=== PATIENT | male | born 1950 | race Caucasian/White ===

== ENCOUNTER 2023-07-31 06:11 | Emergency (ER) | payer MEDICARE, OTHER, SELFPAY ==
[2023-07-31 06:13] VITALS: BP 162/80
--- NOTE | 2023-07-31 06:28 | ED.GENMED ---
History of Present Illness
General
Chief Complaint: Cardiac Symptoms
Source: patient and records
Exam Limitations: none
Time Seen by Provider: 07/31/23 06:16
Nursing documentation reviewed up to this point in time: agreed with
Travel History
Have you had any contact with someone who has COVID-19?: No
Do you have any symptoms of coronavirus? Fever > 100 degrees, chills, cough, shortness of breath, sore throat, loss of taste or smell, muscle aches, or headache?: No
History of Present Illness
History of Present Illness:
73-year-old male with a past medical history as documented including atrial fibrillation, pacemaker (Kranem, placed at [facility] 2 years ago for symptomatic bradycardia), PVD status post stenting of the left lower
extremity who presents to the emergency department for evaluation of lightheadedness�patient concerned for pacemaker malfunction. Patient states that he was watching football game last night and around 1 AM while he was resting he noticed he was
feeling mildly lightheaded. He says that this is his typical symptom for atrial fibrillation and in the past he was told by his cardiology that if he has symptoms he can take an extra one half dose of his metoprolol. He says that he took a 12.5 mg
dose of metoprolol but his lightheadedness did not improve. He says that he checked his heart rate using home monitor and it told him that his heart rate was in the 40s. He says his pacemaker is set for the 70s and so he was concerned that it was
not functioning correctly. He says that symptoms continued on for the next 3 hours or so and he ultimately decided to come to the emergency room to be assessed. He denies any chest pain. He denies any shortness of breath. He denies any abdominal
pain or flank pain. No headache or neck pain. Denies any other complaints. Compliant with all medications including Eliquis.
Past History
Past History
ED Past Medical History: CAD, Cancer (Bladder CA), GERD, HTN and Other (PVD, Diverticulitis, Vestibular vertigo)
ED Past Surgical History: Bowel resection (Sigmoid colon resection), Cardiac (Pacemaker), Cholecystectomy, Orthopedic (right ankle surgery, ), Urological ( Bladder removed, Urostomy, Prostatectomy) and Other (Stents left leg x 2)
Social History
Tobacco: Former smoker
Alcohol: Occasional
Personal:
Living: with family
Review of Systems
Review of Systems
All Other Systems: ROS reviewed and negative except as documented in HPI and ROS
Constitutional: Denies fever
Respiratory: Denies cough or trouble breathing
Cardiac: Denies chest pain or palpitations
ABD/GI: Denies abdominal pain, nausea or vomiting
: Denies flank pain
Musculoskeletal: Denies neck pain or back pain
Neurological: Reports dizzy; Denies headache, weakness or numbness
Phy Exam
Physical Exam
Physical Exam:
General: Awake, alert, oriented x3; no acute distress
Head: Normocephalic, atraumatic
Eyes: Conjunctiva normal
Throat: Airway intact, handling secretions
Neck: Trachea midline, supple without meningismus
Lungs: Clear to auscultation bilaterally, no wheezing, rales, rhonchi
Heart: Regular rate and rhythm, no murmurs, gallops, or rubs; pacemaker left upper chest
Abd: Soft, non distended, nontender; urostomy bag in place, multiple abdominal scars from prior surgery
Neuro: Cranial nerves grossly intact, speech fluid
Skin: Chronic venous stasis changes in his lower extremities bilateral
Extremities: Trace edema in the lower extremities bilaterally, distal extremities warm and well-perfused
Scores
Heart Failure Risk
Heart Failure Risk Score: Not Applicable
Heart Score for Chest Pain Patients
STEMI patient?: Not applicable
Withdrawal Assessment of Alcohol
Withdrawal Assessment Completed?: Not applicable
Course
Orders/Labs/Results
Orders:
Orders
07/31/23 06:17
Electrocardiogram (*1) Urgent
Reason for Study: Bradycardia / Tachycardia
EKG- Treatment ONCE
Interrogate Pacemaker- Treatment ONCE
CR Chest - 2 Views Urgent
Comment:
Reason For Exam: pacemaker, eval for lead fx
07/31/23 06:38
Complete Blood Count/With Diff Urgent
Comprehensive Metabolic Panel Urgent
07/31/23 07:44
CARDIOLOGY CONSULT Urgent
Consulting Provider: Derrick Bland
Was physician already notified: Yes
Abnormal Lab Results
07/31/23
06:38
MCV 79.4 L fL
(80.0-94.0)
Plt Count 129 L 10^3/uL
(130-400)
MPV 10.6 H fL
(7.4-10.4)
Carbon Dioxide 20 L mmol/L
(22-30)
Alkaline Phosphatase 131 H U/L
(38-126)
07/31/23 06:38
07/31/23 06:38
Vital Signs
Initial and Last Documented VS:
Initial Vital Signs
Temp Pulse Resp BP Pulse Ox
36.6 C 70 18 162/80 97
07/31/23 06:13 07/31/23 06:13 07/31/23 06:13 07/31/23 06:13 07/31/23 06:13
Last Documented Vital Signs
Temp Pulse Resp BP Pulse Ox
36.6 C 75 14 123/78 97
07/31/23 06:13 07/31/23 07:30 07/31/23 07:30 07/31/23 07:00 07/31/23 06:13
MDM/Problems Addressed
Differential Diagnosis Includes:
Differential diagnosis is wide includes but not limited to: Cardiac dysrhythmia, bradycardia (fractured lead, battery malfunction, pacemaker malfunction would be consideration); lightheadedness could also be from anemia, electrolyte
derangement/dehydration, hypoglycemia, hypotension
MDM/Problems Addressed:
73-year-old male presents for evaluation after episode of mild lightheadedness that he says was associated with bradycardia into the 40s on a home heart rate monitor. He has a pacemaker and is concerned it is malfunctioning. He feels bit better
here. He has no other symptoms. Vital signs here significant for mild hypertension to 162/80 but otherwise normal including a pulse in the 70s. His EKG on arrival shows an atrial paced rhythm. Will check chest x-ray to evaluate for any signs of
lead fracture although again pacemaker appears to be functioning correctly on EKG here. Will check labs including a CBC and a CMP. Will interrogate device. Monitor on telemetry reassess after the above.
Labs reviewed: CBC shows no anemia or other clinically significant abnormalities. CMP is within acceptable range. Chest x-ray reviewed by me shows no lead fractures/migration or other acute pathology. Device was interrogated and report reviewed
by me shows a few episodes of NSVT but pacemaker otherwise appears to be functioning normally with good battery life. Discussed with cardiology to review (patient follows with [facility]--Dr. Aguero).
Cardiology reviewed pacemaker report: Functioning appropriately, pacing 90% base rate at 70 bpm. He does have frequent PACs which could account for falls under counting of his heart rate. Has had a few episodes of atrial tachycardia. On clinical
reassessment patient's blood pressures normalizes vitals have remained otherwise stable. He has no dizziness here, up and ambulatory without any difficulties. No clear indication for admission at this point with symptoms improved and reassuring
workup here. I think he is stable for discharge and can follow-up with his primary doctor and cardiology as an outpatient. He feels comfortable with this plan. Spoke about return precautions and all questions answered.
Chronic conditions affecting care:
Atrial fibrillation status post pacemaker presented with concern for pacemaker issue
Acute Exacerbation and/or Progression of Chronic Illness:
Acutely hypertensive
Acute Exacerbation and/or Progression of Chronic Illness: HTN
*Radiology
Radiology exam reviewed: preliminary read by ED provider and radiology read reviewed
*Pulse Oximetry
Patient hypoxic: no
*EKG
Interpreted by ED Provider?: Yes
Comparison EKG: no changes
Heart Rate: 70
Rate: normal
Rhythm: other (Atrial paced)
Interval: first degree heart block
QRS Pattern: normal QRS
Ischemia: no ischemia
*Critical Care Note
Total Time (30-74mins, 75-104mins- exclusive of procedures): Not Applicable
Data Reviewed
Review of Other/Old Records Reveals: Labs and Records
Source: patient and records
ED Attending Note
-
Portions of this chart may have been created with voice recognition software.� Occasional wrong word or��sound alike� substitutions may have occurred due to the inherent limitations of voice recognition software.
Discharge Plan
Departure
Patient Disposition: Home (Routine Discharge)
Date of Disposition: 07/31/23
Time of Disposition: 08:51
Patient with high blood pressure during this ER visit?: Yes
Discharge Problem:
Dizziness
Instructions: Dizziness, Adult ED
Prescriptions:
No Action
Eliquis 5 MG tablet
5 mg PO BID
losartan 50 MG tablet
50 mg PO BID
atorvastatin 40 MG tablet
40 mg PO QPM
amlodipine 5 mg Tablet
10 mg PO QPM
potassium 99 mg Tablet
49.5 mg PO DAILY
lansoprazole 30 mg Capsule,Delayed Release(Dr/Ec)
30 mg PO DAILYPRN PRN (Reason: gerd)
metoprolol tartrate 25 mg Tablet
25 mg PO BID
aspirin 81 mg Tablet,Delayed Release (Dr/Ec)
81 mg PO DAILY
Referrals:
Diaz Rodriguez DO [Family Provider] - Follow up in 5-7 days
Activity Restrictions/Additional Instructions:
Thank you for visiting the Emergency Department at [facility].
1. Please schedule a follow up appointment as directed. Call first thing tomorrow morning to make an appointment.
2. If indicated, please take your medications as instructed and indicated on discharge paperwork.
3. If any of your symptoms do not improve, or persist, or become more severe within 6-12 hours, please return to the emergency department for further care.
4. Please return to the emergency department if you develop a headache, neck pain/stiffness, fever greater than 100.4F, chest pain, shortness of breath, persistent nausea, vomiting, slurred speech, difficulty walking, numbness/tingling, weakness,
signs of infection or any other symptoms that are worrisome to you.
Please call [phone] if you have any questions.
Interventions
Interventions:
*Risk Screen - Suicide Last Done: 07/31/23 06:13
*General Assessment Last Done: 07/31/23 06:39
*Neglect/Abuse Screening Last Done: 07/31/23 06:13
ED- Fall Risk Assessment Last Done: 07/31/23 06:39
*ED COVID-19 Vaccine History Last Done: 07/31/23 06:39
ED- Pulmonary Assessment Last Done: 07/31/23 06:39
ED- Cardiac Assessment Last Done: 07/31/23 06:39
[2023-07-31 06:38] VITALS: BP 154/78
[2023-07-31 06:43] VITALS: BMI 31.0
[2023-07-31 07:00] VITALS: BP 123/78
[2023-07-31 07:13] LABS: ALT (SGPT) 20 U/L (0-50); AST (SGOT) 29 U/L (17-59); Albumin 3.8 g/dl (3.5-5.0); Alkaline Phosphatase 131 U/L (38-126); Blood Urea Nitrogen 16 mg/dl (9-20); Calcium 9.2 mg/dl (8.4-10.2); Carbon Dioxide 20 mmol/L (22-30); Chloride 106 mmol/L (98-107); Estimated Creatinine Clearance 59 ml/min; Glucose 95 mg/dl (70-99); Potassium 3.8 mmol/L (3.5-5.1); Sodium 138 mmol/L (135-145); Total Protein 6.7 g/dl (6.3-8.2); eGFR 57.65
[2023-07-31 07:21] LABS: % Basophils 0.5 % (0-2); % Eosinophils 3.2 % (0-6); % Immature Granulocytes 0.5 % (0-0.5); % Lymphocytes 25.6 % (20.5-51.1); % Monocytes 9.2 % (1.7-9.3); Absolute Eosinophils 0.2 10^3/uL (0-0.7); Absolute Lymphocytes 1.6 10^3/uL (1.2-3.4); Absolute Monocytes 0.6 10^3/uL (0.1-0.6); Absolute Neutrophils 3.8 10^3/uL (1.4-6.5); Hematocrit 39.8 % (39.0-52.0); Hemoglobin 13.6 g/dL (13.0-18.0); Mean Corp Hgb Conc. 34.2 g/dL (33.0-37.0); Mean Corpuscular Hgb 27.1 pg (27.0-31.0); Mean Corpuscular Volume 79.4 fL (80.0-94.0); Mean Platelet Volume 10.6 fL (7.4-10.4); Nucleated Red Blood Cells % 0 % (-); Platelet Count 129 10^3/uL (130-400); Red Blood Cell Count 5.01 10^6/uL (4.70-6.10); Red Cell Dist. Width 14.3 % (11.5-14.5); White Blood Cell Count 6.2 10^3/uL (4.8-10.8)
[2023-07-31 08:00] VITALS: BP 125/72
[2023-07-31 09:00] VITALS: BP 133/79
--- NOTE | 2023-07-31 09:44 | EDRN ---
Reviewed discharge instructions with patient. Verbalized understanding.
[2023-07-31 09:45] VITALS: BP 142/78
== END 2023-07-31 09:45 | disposition home or self-care (01) ==
LOC: EMR 06:11
PROVIDERS: CONSULT PHYSICIAN Internal Medicine Cardiovascular Disease; EMERGENCY PHYSICIAN Emergency Medicine; FAMILY PHYSICIAN Family Medicine Sports Medicine
DX: R42 Dizziness and giddiness (principal); I44.0 Atrioventricular block, first degree; I48.91 Unspecified atrial fibrillation; K21.9 Gastro-esophageal reflux disease without esophagitis; I10 Essential (primary) hypertension; I25.10 Atherosclerotic heart disease of native coronary artery without angina pectoris; I73.9 Peripheral vascular disease, unspecified; Z79.01 Long term (current) use of anticoagulants; Z95.0 Presence of cardiac pacemaker; Z95.5 Presence of coronary angioplasty implant and graft; Z85.51 Personal history of malignant neoplasm of bladder; Z85.46 Personal history of malignant neoplasm of prostate; Z87.891 Personal history of nicotine dependence; Z90.49 Acquired absence of other specified parts of digestive tract; Z90.79 Acquired absence of other genital organ(s); Z98.0 Intestinal bypass and anastomosis status; Z88.8 Allergy status to other drugs, medicaments and biological substances; Z88.5 Allergy status to narcotic agent; Z91.013 Allergy to seafood
CPT/HCPCS: 99284; 71046; 80053; 85025; 93005

== ENCOUNTER 2023-10-15 19:14 | Emergency (ER) | payer MEDICARE, OTHER, SELFPAY ==
[2023-10-15 19:17] VITALS: BP 124/86
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
== END 2023-10-15 23:22 | disposition home or self-care (01) ==
LOC: EMR 19:14
PROVIDERS: EMERGENCY PHYSICIAN Emergency Medicine; FAMILY PHYSICIAN Family Medicine Sports Medicine
DX: S60.512A Abrasion of left hand, initial encounter (principal); S60.311A Abrasion of right thumb, initial encounter; S80.212A Abrasion, left knee, initial encounter; M25.512 Pain in left shoulder; V18.2XXA Unspecified pedal cyclist injured in noncollision transport accident in nontraffic accident, initial encounter; I25.10 Atherosclerotic heart disease of native coronary artery without angina pectoris; I10 Essential (primary) hypertension; I48.91 Unspecified atrial fibrillation; K21.9 Gastro-esophageal reflux disease without esophagitis; K57.92 Diverticulitis of intestine, part unspecified, without perforation or abscess without bleeding; Z79.01 Long term (current) use of anticoagulants; Z95.0 Presence of cardiac pacemaker; Z87.891 Personal history of nicotine dependence; Z85.51 Personal history of malignant neoplasm of bladder; Z98.0 Intestinal bypass and anastomosis status; Z90.79 Acquired absence of other genital organ(s); Z88.8 Allergy status to other drugs, medicaments and biological substances; Z88.5 Allergy status to narcotic agent; Z91.013 Allergy to seafood
CPT/HCPCS: 99284; 70450; 73030; 73120; 73564

== ENCOUNTER 2023-11-25 19:46 | Emergency (ER) | payer MEDICARE, OTHER, SELFPAY ==
[2023-11-25 19:50] VITALS: BP 112/71; BMI 28.0
--- NOTE | 2023-11-25 20:26 | ED.GENMED ---
History of Present Illness
<Urvashi Kelly [employer] MANAGEMENT OFFICER - Last Filed: 11/26/23 00:33>
General
Chief Complaint: Chest Pain
Source: patient
Exam Limitations: none
Time Seen by Provider: 11/25/23 20:26
Nursing documentation reviewed up to this point in time: agreed with
Travel History
Have you had any contact with someone who has COVID-19?: No
Do you have any symptoms of coronavirus? Fever > 100 degrees, chills, cough, shortness of breath, sore throat, loss of taste or smell, muscle aches, or headache?: No
History of Present Illness
History of Present Illness:
73 yo male w h/o Lung CA, Afib on Eliquis, HTN, Pacemaker, CAD, Cystectomy for bladder CA, Prostatectomy for CA, presents stating 'I'm in a fib.' States 6 p.m. while napping left upper chest pain awakened him suddenly, he took Prevacid with no
relief, at 6:15 chewed four 81 mg ASA and CP subsided after 10 minutes. Sat back down, felt heart palpitations, his pulse ox was reading HR 70-115. He states he is typically NSR. Denies SOB or feeling lightheaded.
Past History
<Urvashi Kelly [employer]NAG[employer] OFFICER - Last Filed: 11/26/23 00:33>
Past History
ED Past Medical History: CAD, Cancer (Bladder CA), GERD, HTN and Other (PVD, Diverticulitis, Vestibular vertigo)
ED Past Surgical History: Bowel resection (Sigmoid colon resection), Cardiac (Pacemaker), Cholecystectomy, Orthopedic (right ankle surgery, ), Urological ( Bladder removed, Urostomy, Prostatectomy) and Other (Stents left leg x 2)
Social History
Tobacco: Former smoker
Alcohol: Occasional
Personal:
Living: with family
Review of Systems
<Urvashi Kelly [employer]NAG[employer] OFFICER - Last Filed: 11/26/23 00:33>
Review of Systems
Allergies reviewed?: Yes
All Other Systems: ROS reviewed and negative except as documented in HPI and ROS
Constitutional: Denies fever or fatigue
Respiratory: Denies trouble breathing
Cardiac: Reports chest pain and palpitations; Denies diaphoresis
ABD/GI: Denies abdominal pain or nausea
: Reports no symptoms
Musculoskeletal: Reports no symptoms
Skin: Reports no symptoms
Neurological: Reports no symptoms
Phy Exam
<Urvashi Kelly [employer]NAG[employer] OFFICER - Last Filed: 11/26/23 00:33>
Physical Exam
Physical Exam:
GENERAL: No acute distress. A&Ox3.
CONSTITUTIONAL: Afebrile.
EYES: clear, conjunctivae normal
ENMT: moist mucus membranes, Pharynx nl
RESPIRATORY: Regular respirations, nonlabored, lungs clear.
CARDIOVASCULAR: Irregularly irregular rate and rhythm, no murmurs, no rubs.
GI: Soft, nontender.
: Urostomy bag intact, draining clear yellow uring
MUSCULOSKELETAL: Moves with ease. Well perfused. No edema.
SKIN: Warm, dry, pink, both feet dusky color, mildly cool
PSYCH: Normal mood and affect. Well kept, interactive and appropriate
NEUROLOGIC: Awake, alert and oriented. No focal neurological deficits
Scores
<Urvashi Kelly, COUNTY [employer] MANAGEMENT OFFICER - Last Filed: 11/26/23 00:33>
Heart Score for Chest Pain Patients
STEMI patient?: No
History: Slightly or Non-Suspicious
ECG: Normal
Age: >/= 65 years
Risk Factors: 1 or 2 Risk Factors
Troponin: </= Normal Limit
Heart Score for Chest Pain Patients: 3
Heart Score Risk: 2.5% MACE over next 6 weeks
Course
<Urvashi Kelly, COUNTY [employer] MANAGEMENT OFFICER - Last Filed: 11/26/23 00:33>
Orders/Labs/Results
Orders:
Orders
11/25/23 19:47
Electrocardiogram (*1) Urgent
Reason for Study: Chest Pain
11/25/23 19:48
EKG- Treatment ONCE
11/25/23 20:51
Complete Blood Count/With Diff Urgent
Comprehensive Metabolic Panel Urgent
Troponin I Urgent
11/25/23 23:48
Troponin I Urgent
Abnormal Lab Results
11/25/23
20:51
Hct 38.1 L %
(39.0-52.0)
MCV 76.8 L fL
(80.0-94.0)
Monocytes % 10.2 H %
(1.7-9.3)
BUN 21 H mg/dl
(9-20)
Glucose 102 H mg/dl
(70-99)
Alkaline Phosphatase 127 H U/L
(38-126)
11/25/23 20:51
11/25/23 20:51
Vital Signs
Initial and Last Documented VS:
Initial Vital Signs
Temp Pulse Resp BP Pulse Ox
98.4 F 78 20 112/71 99
11/25/23 19:50 11/25/23 19:50 11/25/23 19:50 11/25/23 19:50 11/25/23 19:50
Last Documented Vital Signs
Temp Pulse Resp BP Pulse Ox
98.4 F 78 20 125/69 95
11/25/23 19:50 11/26/23 00:00 11/26/23 00:00 11/26/23 00:00 11/26/23 00:00
<Wing Mccord MD - Last Filed: 11/25/23 23:40>
Orders/Labs/Results
Orders:
Orders
11/25/23 19:47
Electrocardiogram (*1) Urgent
Reason for Study: Chest Pain
11/25/23 19:48
EKG- Treatment ONCE
11/25/23 20:51
Complete Blood Count/With Diff Urgent
Comprehensive Metabolic Panel Urgent
Troponin I Urgent
11/25/23 23:48
Troponin I Urgent
Abnormal Lab Results
11/25/23
20:51
Hct 38.1 L %
(39.0-52.0)
MCV 76.8 L fL
(80.0-94.0)
Monocytes % 10.2 H %
(1.7-9.3)
BUN 21 H mg/dl
(9-20)
Glucose 102 H mg/dl
(70-99)
Alkaline Phosphatase 127 H U/L
(38-126)
11/25/23 20:51
11/25/23 20:51
Vital Signs
Initial and Last Documented VS:
Initial Vital Signs
Temp Pulse Resp BP Pulse Ox
98.4 F 78 20 112/71 99
11/25/23 19:50 11/25/23 19:50 11/25/23 19:50 11/25/23 19:50 11/25/23 19:50
Last Documented Vital Signs
Temp Pulse Resp BP Pulse Ox
98.4 F 78 20 125/69 95
11/25/23 19:50 11/26/23 00:00 11/26/23 00:00 11/26/23 00:00 11/26/23 00:00
<Urvashi Kelly, COUNTY [employer] MANAGEMENT OFFICER - Last Filed: 11/26/23 00:33>
MDM/Problems Addressed
Differential Diagnosis Includes:
Afib, Afib w RVR, AK
MDM/Problems Addressed:
73 yo male w h/o Lung CA, Afib on Eliquis, HTN, Pacemaker, CAD, Cystectomy for bladder CA, Prostatectomy for CA, presents stating 'I'm in a fib.' States 6 p.m. while napping left upper chest pain awakened him suddenly, he took Prevacid with no
relief, at 6:15 chewed four 81 mg ASA and CP subsided after 10 minutes. Sat back down, felt heart palpitations, his pulse ox was reading HR 70-115. He states he is typically NSR. Denies SOB or feeling lightheaded.
9:27 p.m.
CBC w no clinically significant abnormality
CMP:Normal
Troponin: WNL
No further chest pains
11:[address] Mccord in to evaluate
Pacemaker interrogation report reviewed, no recent significant events
Troponin #2 Normal
Pt stable for discharge
Referred to cardiology hotline.
Chronic conditions affecting care: CAD, Arrhythmia and PVD
<Urvashi Kelly [employer]NAG[employer] OFFICER - Last Filed: 11/26/23 00:33>
*Critical Care Note
Total Time (30-74mins, 75-104mins- exclusive of procedures): Not Applicable
ED Attending Note
<Urvashi Kelly NP - Last Filed: 11/26/23 00:33>
-
Portions of this chart may have been created with voice recognition software.� Occasional wrong word or��sound alike� substitutions may have occurred due to the inherent limitations of voice recognition software.
<Wing Mccord MD - Last Filed: 11/25/23 23:40>
ED Attending Note
Patient seen and examined by attending physician: Yes
ED Attending Note:
I have seen and evaluated the patient with a [id number] encounter. I have spoken to the advance practicer provider and involved in the medical history, the physical exam, medical decision making.
Evaluation and management service: agree unless noted differently below.
Results interpretation: agree unless noted differently below.
Focused HPI: 73-year-old male with a past medical history of lung cancer, hypertension, CAD, atrial fibrillation, pacemaker who presents to the emergency room for evaluation after an episode of chest pain. Patient reports that he was in his normal
state of health this afternoon was at a yard sale in the morning. He returned home around 3 PM and he says he had some lunch. He says he took a nap after lunch and woke up around 6 PM with chest pain. He describes a substernal pressure. He says
that he will occasionally get the symptoms with his GERD which improved with Prevacid�he took his normal dose of Prevacid but symptoms did not seem be improving. He says he took 324 mg of aspirin and about 15 to 20 minutes later his symptoms
resolved. He says that afterwards he was sitting on couch watching TV and he noticed he was having some palpitations consistent with his prior episodes of A-fib. He decided that given the chest pain and now his concern for A-fib he should be
evaluated in the emergency room. He is currently chest pain-free and his palpitations seem to have improved by my assessment. He denies any shortness of breath. He denies any dizziness or loss of consciousness. He denies any other complaints.
He sees Dr. Aguero for cardiology.
Physical exam: Awake alert not in distress. Vital signs are normal. He has no cardiac rubs gallops or murmurs. Lungs clear to auscultation bilaterally. No edema in his extremities. Distal extremities warm perfused.
Medical Decision Makin-year-old male presents for evaluation after an episode of chest pain also had some palpitations consistent with prior episodes of A-fib. Symptoms seem to have improved here. Vital signs are normal. EKG shows A-fib with
occasional ventricular paced beats. Heart rate in 70s or 80s. Plan to place an IV check labs including CBC and CMP, serial troponins. Will monitor patient on telemetry. Interrogate pacemaker ([employer]). Reassess after the above.
CBC and CMP unremarkable. Initial troponin negative with repeat pending. Device interrogation showed episodes of atrial fibrillation but no other concerning events. Functioning appropriately. I do suspect that his chest pain may have been
related to GERD as it happened after eating lunch and then taking a nap. Nevertheless he does have some coronary artery disease�will need cardiology follow-up regardless; if repeat troponin negative and remains asymptomatic can likely be referred
to ER chest pain hotline.
Discharge Plan
Departure
Patient Disposition: Home (Routine Discharge)
Date of Disposition: 11/26/23
Time of Disposition: 00:18
Patient with high blood pressure during this ER visit?: No
Condition: Good
Discharge Problem:
Atrial fibrillation, Chest pain in adult
Instructions: Atrial fibrillation, Chest Pain DCA Follow Up
Prescriptions:
No Action
Eliquis 5 MG tablet
5 mg PO BID
losartan 50 MG tablet
50 mg PO DAILY
atorvastatin 40 MG tablet
40 mg PO QPM
amlodipine 5 mg Tablet
5 mg PO DAILY@1999
potassium 99 mg Tablet
49.5 mg PO DAILY
lansoprazole 30 mg Capsule,Delayed Release(Dr/Ec)
30 mg PO BIDPRN PRN (Reason: gerd)
metoprolol tartrate 25 mg Tablet
25 mg PO DAILY
aspirin 81 mg Tablet,Delayed Release (Dr/Ec)
81 mg PO DAILY
losartan 50 mg Tablet
25 mg PO QPM
docusate sodium [Stool Softener] 100 mg Capsule
100 mg PO DAILY
docusate sodium [Stool Softener] 100 mg Capsule
100 mg PO BID PRN (Reason: constipation)
Patient Comments:
11/25/2023, lunchtime and dinnertime as needed.
metoprolol tartrate 25 mg Tablet
12.5 mg PO DAILY@1999
Referrals:
Ming Aguero MD [Active] - Call in 1-3 days for appt
Activity Restrictions/Additional Instructions:
As we discussed, your workup here today shows nothing worrisome
Someone from the cardiology office will call you Monday to make appointment for a more thorough cardiac evaluation.
If you don't hear from them by Monday 10 a.m., call the office, tell them you were here and need appointment
Continue your current medicatations.
Interventions
Interventions:
*Risk Screen - Suicide Last Done: 11/25/23 19:50
*General Assessment Last Done: 11/25/23 20:30
*Neglect/Abuse Screening Last Done: 11/25/23 19:50
ED- Fall Risk Assessment Last Done: 11/25/23 19:50
*ED COVID-19 Vaccine History Last Done: 11/25/23 20:30
ED- Cardiac Assessment Last Done: 11/25/23 22:28
Discharge Date and Time
Print Language: THAI
[2023-11-25 21:01] LABS: % Basophils 0.7 % (0-2); % Eosinophils 3.9 % (0-6); % Immature Granulocytes 0.3 % (0-0.5); % Lymphocytes 32.7 % (20.5-51.1); % Monocytes 10.2 % (1.7-9.3); % Neutrophils 52.2 % (42.2-75.2); Absolute Eosinophils 0.2 10^3/uL (0-0.7); Absolute Monocytes 0.6 10^3/uL (0.1-0.6); Absolute Neutrophils 3.2 10^3/uL (1.4-6.5); Hematocrit 38.1 % (39.0-52.0); Hemoglobin 13.4 g/dL (13.0-18.0); Mean Corp Hgb Conc. 35.2 g/dL (33.0-37.0); Mean Corpuscular Volume 76.8 fL (80.0-94.0); Mean Platelet Volume 10.4 fL (7.4-10.4); Nucleated Red Blood Cells % 0 % (-); Platelet Count 145 10^3/uL (130-400); Red Blood Cell Count 4.96 10^6/uL (4.70-6.10); Red Cell Dist. Width 14.5 % (11.5-14.5); White Blood Cell Count 6.2 10^3/uL (4.8-10.8)
[2023-11-25 21:14] LABS: ALT (SGPT) 18 U/L (0-50); AST (SGOT) 26 U/L (17-59); Albumin 3.9 g/dl (3.5-5.0); Alkaline Phosphatase 127 U/L (38-126); Blood Urea Nitrogen 21 mg/dl (9-20); Calcium 9.2 mg/dl (8.4-10.2); Carbon Dioxide 26 mmol/L (22-30); Chloride 103 mmol/L (98-107); Estimated Creatinine Clearance 51 ml/min; Glucose 102 mg/dl (70-99); Potassium 3.8 mmol/L (3.5-5.1); Sodium 137 mmol/L (135-145); Total Bilirubin 0.7 mg/dl (0.2-1.3); eGFR 57.65
[2023-11-25 21:25] LABS: Troponin I 0.015 ng/ml
[2023-11-25 21:30] VITALS: BP 109/63
--- NOTE | 2023-11-25 21:58 | PHANOTE ---
11/25/2023, [employer] rec tech, spoke to pt. to obtain their med. history; per pt., he is taking Eliquis 5 mg BID; however, this med. is not in pt.'s pharmacy fill data and the [facility] application is currently unavailable so I could not confirm this med.
[2023-11-25 22:14] VITALS: BP 112/69
--- NOTE | 2023-11-25 22:26 | EDRN ---
[employer] pacemaker interrogated
[2023-11-25 23:00] VITALS: BP 119/85
[2023-11-26] VITALS: BP 125/69
[2023-11-26 00:17] LABS: Troponin I 0.015 ng/ml
== END 2023-11-26 01:03 | disposition home or self-care (01) ==
LOC: EMR 19:46
PROVIDERS: Registered Nurse; EMERGENCY PHYSICIAN Emergency Medicine; FAMILY PHYSICIAN Family Medicine Sports Medicine
DX: I48.91 Unspecified atrial fibrillation (principal); R07.89 Other chest pain; I10 Essential (primary) hypertension; I25.10 Atherosclerotic heart disease of native coronary artery without angina pectoris; K21.9 Gastro-esophageal reflux disease without esophagitis; I73.9 Peripheral vascular disease, unspecified; K57.92 Diverticulitis of intestine, part unspecified, without perforation or abscess without bleeding; Z95.0 Presence of cardiac pacemaker; Z79.01 Long term (current) use of anticoagulants; Z85.51 Personal history of malignant neoplasm of bladder; Z85.118 Personal history of other malignant neoplasm of bronchus and lung; Z85.46 Personal history of malignant neoplasm of prostate; Z87.891 Personal history of nicotine dependence; Z98.0 Intestinal bypass and anastomosis status; Z90.79 Acquired absence of other genital organ(s); Z90.49 Acquired absence of other specified parts of digestive tract; Z90.6 Acquired absence of other parts of urinary tract; Z88.5 Allergy status to narcotic agent; Z91.013 Allergy to seafood; Z88.8 Allergy status to other drugs, medicaments and biological substances; Z91.048 Other nonmedicinal substance allergy status
CPT/HCPCS: 99284; 93288; 80053; 84484; 85025; 93005

== ENCOUNTER 2024-03-12 13:21 | Emergency (ER) | payer MEDICARE, OTHER, SELFPAY ==
[2024-03-12] VITALS (8 sets, daily range): BP systolic 96–111; BP diastolic 56–61; PULSE 70
[2024-03-12 13:53] LABS: ALT (SGPT) 16 U/L (0-50); AST (SGOT) 27 U/L (17-59); Alkaline Phosphatase 124 U/L (38-126); Blood Urea Nitrogen 17 mg/dl (9-20); Calcium 9.1 mg/dl (8.4-10.2); Carbon Dioxide 26 mmol/L (22-30); Chloride 103 mmol/L (98-107); Glucose 119 mg/dl (70-99); Potassium 4.1 mmol/L (3.5-5.1); Sodium 140 mmol/L (135-145); Total Bilirubin 0.7 mg/dl (0.2-1.3); Total Protein 6.7 g/dl (6.3-8.2); eGFR 57.29
[2024-03-12 14:07] LABS: % Basophils 0.5 % (0-2); % Eosinophils 3.4 % (0-6); % Immature Granulocytes 0.3 % (0-0.5); % Lymphocytes 12.2 % (20.5-51.1); % Monocytes 10.5 % (1.7-9.3); % Neutrophils 73.1 % (42.2-75.2); Absolute Eosinophils 0.2 10^3/uL (0-0.7); Absolute Lymphocytes 0.8 10^3/uL (1.2-3.4); Absolute Monocytes 0.7 10^3/uL (0.1-0.6); Absolute Neutrophils 4.8 10^3/uL (1.4-6.5); Hematocrit 40.4 % (39.0-52.0); Mean Corp Hgb Conc. 34.7 g/dL (33.0-37.0); Mean Corpuscular Hgb 28.1 pg (27.0-31.0); Mean Platelet Volume 10.7 fL (7.4-10.4); Nucleated Red Blood Cells % 0 % (-); Platelet Count 117 10^3/uL (130-400); Red Blood Cell Count 4.99 10^6/uL (4.70-6.10); Red Cell Dist. Width 14.6 % (11.5-14.5); White Blood Cell Count 6.5 10^3/uL (4.8-10.8)
[2024-03-12] MEDS: NSS 500 IV (15:17)
--- NOTE | 2024-03-12 15:25 | ED.GENMED ---
History of Present Illness
General
Chief Complaint: Heart Rate Problem
Source: patient
Exam Limitations: none
Time Seen by Provider: 03/12/24 14:26
Nursing documentation reviewed up to this point in time: agreed with
History of Present Illness
History of Present Illness:
74 y/o M afib on eliquis, pacer, lung cancer receiving radiation yazidi, cad, chronic diarrhea, sigmoidectomy, urostomy
here with lightheadedness, palpitations after eating lunch
says that he suddenly felt dizzy and knows that means he is either in a fib or dehdyrated
he checked his bp which was 100/60s and then HR 90s-140s bouncing around
he had missed his metoprolol 12.5 mg this am, so he took 1, then a 2nd one, then a 3rd one
then drove himself in
now he feels better
bp 90s/50s
pt says he is on a lot of stool softener/laxatives becuase of his chroinc constipation and has lots of loose stool chronically so he has several episodes daily of looose stools
this is chronic
no abdomnal pain
Past History
Past History
ED Past Medical History: CAD, Cancer (Bladder CA), GERD, HTN and Other (PVD, Diverticulitis, Vestibular vertigo)
ED Past Surgical History: Bowel resection (Sigmoid colon resection), Cardiac (Pacemaker), Cholecystectomy, Orthopedic (right ankle surgery, ), Urological ( Bladder removed, Urostomy, Prostatectomy) and Other (Stents left leg x 2)
Social History
Tobacco: Former smoker
Alcohol: Occasional
Personal:
Living: with family
Review of Systems
Review of Systems
Allergies reviewed?: Yes
All Other Systems: Not applicable
Phy Exam
Physical Exam
Physical Exam:
GENERAL: Alert , in no apparent distress, very well-appearing
EYE: pupils equal and reactive
NECK: Supple
ENT: o/p clr, mmm.
CARDIAC: Regular rate and rhythm . No edema
LUNGS: Clear breath sounds bilaterally, no acute respiratory distress, no wheezes/rales/rhonchi
ABDOMEN: Soft, without focal tenderness, no r/g, no cvat, normal bowel sounds urostomy right side, nontender abdomen
NEUROLOGICAL: Alert and oriented, no focal neuro deficits
SKIN: Warm and dry, skin intact. Peripheral vascular skin changes in the bilateral lower extremities, normal pulse, perfused warm
MUSCULOSKELETAL: No edema, well perfused. neg lauryn's sign
PSYCH: Normal and appropriate interaction.
Course
Orders/Labs/Results
Orders:
Orders
03/12/24 13:25
EKG [Electrocardiogram (*1)] Urgent
Reason for Study: Atrial Fibrillation
EKG- Treatment ONCE
03/12/24 13:34
Complete Blood Count/With Diff Urgent
Comprehensive Metabolic Panel Urgent
03/12/24 15:08
Orthostatic VS- Treatment ONCE
0.9% Sodium Chloride 500 ml [Nss] 500 ml IV BOLUS
CR Chest - 2 Views Urgent
Comment:
Reason For Exam: hypotensive
03/12/24 15:17
NT-proBNP Urgent
Abnormal Lab Results
03/12/24
13:34
RDW 14.6 H %
(11.5-14.5)
Plt Count 117 L 10^3/uL
(130-400)
MPV 10.7 H fL
(7.4-10.4)
Absolute Lymphs (auto) 0.8 L 10^3/uL
(1.2-3.4)
Absolute Monos (auto) 0.7 H 10^3/uL
(0.1-0.6)
Lymphocytes % 12.2 L %
(20.5-51.1)
Monocytes % 10.5 H %
(1.7-9.3)
Glucose 119 H mg/dl
(70-99)
03/12/24 13:34
03/12/24 13:34
Vital Signs
Initial and Last Documented VS:
Initial Vital Signs
Temp Pulse Resp BP Pulse Ox
98.2 F 84 17 96/61 98
03/12/24 13:30 03/12/24 13:30 03/12/24 13:30 03/12/24 13:30 03/12/24 13:30
Last Documented Vital Signs
Temp Pulse Resp BP Pulse Ox
98.2 F 70 18 111/59 99
03/12/24 13:30 03/12/24 17:00 03/12/24 17:00 03/12/24 17:00 03/12/24 17:00
MDM/Problems Addressed
Differential Diagnosis Includes:
hypotension, afib, overmedicated, dehydration
MDM/Problems Addressed:
74 y/o M
PAF on eliquis
says he felt himself go into afib (felt lightheaded and checked his HR which was irregular and fast)
he had missed his am metoprolol so he took it, plus 2 additional tabs within a short time and drove himself here
felt a little lightheaded and bp was soft on arrival but otherwise felt well
ekg NSR, no afib, no tachyarrhythmias
he was given small fluid bolus
bp improved
pt ambulatory without symptoms
d/w ed attending
agree that pt likely overmedicated with BB
no signs of CHF
cxr indep reviewed, no failure
d/c home
f/u cards
*Critical Care Note
Total Time (30-74mins, 75-104mins- exclusive of procedures): Not Applicable
ED Attending Note
-
Portions of this chart may have been created with voice recognition software.� Occasional wrong word or��sound alike� substitutions may have occurred due to the inherent limitations of voice recognition software.
Discharge Plan
Departure
Patient Disposition: Home (Routine Discharge)
Date of Disposition: 03/12/24
Time of Disposition: 17:24
Patient with high blood pressure during this ER visit?: No
Condition: Fair
Covid-19: Not Applicable
Discharge Problem:
Hypotension due to medication
Instructions: Atrial Fibrillation (DC), Palpitations (DC)
Prescriptions:
No Action
Eliquis 5 MG tablet
5 mg PO BID
losartan 50 MG tablet
50 mg PO DAILY
atorvastatin 40 MG tablet
40 mg PO QPM
amlodipine 5 mg Tablet
5 mg PO DAILY@1999
potassium 99 mg Tablet
49.5 mg PO DAILY
lansoprazole 30 mg Capsule,Delayed Release(Dr/Ec)
30 mg PO BIDPRN PRN (Reason: gerd)
metoprolol tartrate 25 mg Tablet
25 mg PO DAILY
aspirin 81 mg Tablet,Delayed Release (Dr/Ec)
81 mg PO DAILY
losartan 50 mg Tablet
25 mg PO QPM
docusate sodium [Stool Softener] 100 mg Capsule
100 mg PO DAILY
docusate sodium [Stool Softener] 100 mg Capsule
100 mg PO BID PRN (Reason: constipation)
Patient Comments:
11/25/2023, lunchtime and dinnertime as needed.
metoprolol tartrate 25 mg Tablet
12.5 mg PO DAILY@1999
Referrals:
Diaz Rodriguez DO [Family Provider] - Follow up in 2-3 days
Activity Restrictions/Additional Instructions:
Your blood pressure report was probably low because you took an extra 2 doses of your metoprolol for your atrial fibrillation that was presumed to be the cause of your lightheadedness today. You also have a lot of diarrhea and can be losing your
fluids that way. Probably back off of the laxative 1 dose so that you do not have this much diarrhea. Also he should probably hold your metoprolol tonight
You were no longer in A-fib and you are in sinus rhythm currently
Return for any concerns
Otherwise follow-up with your fish cake maker
Interventions
Interventions:
*Risk Screen - Suicide Last Done: 03/12/24 14:21
*General Assessment Last Done: 03/12/24 14:21
*Neglect/Abuse Screening Last Done: 03/12/24 14:21
ED- Fall Risk Assessment Last Done: 03/12/24 18:05
*Nursing Disposition Last Done: 03/12/24 18:05
ED- Cardiac Assessment Last Done: 03/12/24 14:21
ED- Pulmonary Assessment Last Done: 03/12/24 14:21
Discharge Date and Time
Discharge Date/Time: 03/12/24 18:05
Print Language: [place]
[2024-03-12 15:50] LABS: NT-proBNP 809 pg/ml
== END 2024-03-12 18:05 | disposition home or self-care (01) ==
LOC: EMR 13:21
PROVIDERS: Emergency Medicine; Physician Assistant; EMERGENCY PHYSICIAN Emergency Medicine; FAMILY PHYSICIAN Family Medicine Sports Medicine
DX: I95.2 Hypotension due to drugs (principal); I48.91 Unspecified atrial fibrillation; I25.10 Atherosclerotic heart disease of native coronary artery without angina pectoris; C34.90 Malignant neoplasm of unspecified part of unspecified bronchus or lung; Z92.3 Personal history of irradiation
CPT/HCPCS: 99283; 96360; 71046; 80053; 83880; 85025; 93005

== ENCOUNTER → 2024-04-01 09:59 | Outpatient (REF) | payer MEDICARE, OTHER, SELFPAY | LOC: RAD 09:59 | PROVIDERS: ATTENDING PHYSICIAN Surgery Vascular Surgery; FAMILY PHYSICIAN Family Medicine Sports Medicine; REFERRING PHYSICIAN Surgery Vascular Surgery | DX: I73.9 Peripheral vascular disease, unspecified (principal) | CPT/HCPCS: 93922; 93925 ==

== ENCOUNTER 2024-05-04 15:17 | Emergency (ER) | payer MEDICARE, OTHER, SELFPAY ==
[2024-05-04 15:31] VITALS: BP 116/55
[2024-05-04 16:04] LABS: % Basophils 0.2 % (0-2); % Eosinophils 0.4 % (0-6); % Immature Granulocytes 0.3 % (0-0.5); % Monocytes 8.5 % (1.7-9.3); % Neutrophils 81.6 % (42.2-75.2); Absolute Lymphocytes 0.8 10^3/uL (1.2-3.4); Absolute Monocytes 0.8 10^3/uL (0.1-0.6); Absolute Neutrophils 7.4 10^3/uL (1.4-6.5); Hematocrit 41.8 % (39.0-52.0); Hemoglobin 14.4 g/dL (13.0-18.0); Mean Corp Hgb Conc. 34.4 g/dL (33.0-37.0); Mean Corpuscular Hgb 27.6 pg (27.0-31.0); Mean Corpuscular Volume 80.1 fL (80.0-94.0); Mean Platelet Volume 10.1 fL (7.4-10.4); Nucleated Red Blood Cells % 0 % (-); Platelet Count 173 10^3/uL (130-400); Red Blood Cell Count 5.22 10^6/uL (4.70-6.10); Red Cell Dist. Width 13.6 % (11.5-14.5); White Blood Cell Count 9.1 10^3/uL (4.8-10.8)
[2024-05-04 16:11] LABS: ALT (SGPT) 19 U/L (0-50); AST (SGOT) 24 U/L (17-59); Albumin 4.1 g/dl (3.5-5.0); Alkaline Phosphatase 151 U/L (38-126); Blood Urea Nitrogen 33 mg/dl (9-20); Calcium 9.3 mg/dl (8.4-10.2); Carbon Dioxide 25 mmol/L (22-30); Chloride 105 mmol/L (98-107); Glucose 124 mg/dl (70-99); Potassium 4.4 mmol/L (3.5-5.1); Sodium 143 mmol/L (135-145); Total Bilirubin 0.4 mg/dl (0.2-1.3); Total Protein 7.2 g/dl (6.3-8.2); eGFR 52.41
[2024-05-04 18:14] VITALS: BP 106/68
[2024-05-04] MEDS: NSS 500 IV (18:14)
[2024-05-04 19:00] VITALS: BP 118/67
--- NOTE | 2024-05-04 19:31 | ED.GENMED ---
History of Present Illness
General
Chief Complaint: Heart Rate Problem
Source: patient
Exam Limitations: none
Time Seen by Provider: 05/04/24 17:50
Nursing documentation reviewed up to this point in time: agreed with
History of Present Illness
History of Present Illness:
Patient with history of paroxysmal atrial fibrillation on Eliquis and metoprolol, presents to ED secondary to sudden onset of dizziness, along with palpitations, while he was at home this afternoon. Patient checked his pulse and it was greater than
180 bpm. His monitor at home also told him that he was back in atrial fibrillation rhythm. As it had happened in the past, and previous recommendation given by his primary housing director, patient proceeded to take extra tablet of metoprolol, prior
to arrival. Upon arrival, patient is found to be in sinus rhythm, with resolution of dizziness. Denies associated chest pain. Denies nausea or vomiting. Denies recent change in diet. Patient admittedly however, does not take enough liquids. In
addition, patient was seen in urgent care center secondary to development of number of nodes along his fingers. Patient was started empirically on amoxicillin yesterday, with concern for cellulitis versus rheumatoid arthritis.
Past History
Past History
ED Past Medical History: CAD, Cancer (Bladder CA), GERD, HTN and Other (PVD, Diverticulitis, Vestibular vertigo)
ED Past Surgical History: Bowel resection (Sigmoid colon resection), Cardiac (Pacemaker), Cholecystectomy, Orthopedic (right ankle surgery, ), Urological ( Bladder removed, Urostomy, Prostatectomy) and Other (Stents left leg x 2)
Social History
Tobacco: Former smoker
Alcohol: Occasional
Personal:
Living: with family
Review of Systems
Review of Systems
Allergies reviewed?: Yes
All Other Systems: ROS reviewed and negative except as documented in HPI and ROS
Constitutional: Reports no symptoms
EENT: Reports no symptoms
Respiratory: Reports no symptoms
Cardiac: Reports palpitations
ABD/GI: Reports no symptoms
Musculoskeletal: Reports no symptoms
Skin: Reports no symptoms
Neurological: Reports dizzy
Phy Exam
Physical Exam
Physical Exam:
Physical Exam
General: no apparent distress, not acutely ill. afebrile
Head: nc/at. eomi
Neck: supple. no meningeal signs.
Heart: s1/s2 regular rate and rhythm, no murmur. equal radial pulses.
Lungs: no acute respiratory distress. clear bilaterally
Abdomen: normal bowel sounds. not tender.
Neuro: alert and oriented. no focal neurological deficits
Skin: no rash
Psychiatric: well kept. interactive and cooperative
Extremities: no edema. no calf tenderness.
Course
Orders/Labs/Results
Orders:
Orders
05/04/24 15:24
EKG [Electrocardiogram (*1)] Urgent
Reason for Study: Palpitations
EKG- Treatment ONCE
05/04/24 15:45
Complete Blood Count/With Diff Urgent
Comprehensive Metabolic Panel Urgent
Troponin I Urgent
05/04/24 18:08
0.9% Sodium Chloride 500 ml [Nss] 500 ml IV BOLUS
Abnormal Lab Results
05/04/24
15:45
Absolute Neuts (auto) 7.4 H 10^3/uL
(1.4-6.5)
Absolute Lymphs (auto) 0.8 L 10^3/uL
(1.2-3.4)
Absolute Monos (auto) 0.8 H 10^3/uL
(0.1-0.6)
Neutrophils % 81.6 H %
(42.2-75.2)
Lymphocytes % 9.0 L %
(20.5-51.1)
BUN 33 H mg/dl
(9-20)
Creatinine 1.4 H mg/dL
(0.7-1.3)
Glucose 124 H mg/dl
(70-99)
Alkaline Phosphatase 151 H U/L
(38-126)
05/04/24 15:45
05/04/24 15:45
Vital Signs
Initial and Last Documented VS:
Initial Vital Signs
Temp Pulse Resp BP Pulse Ox
97.8 F 69 20 116/55 100
05/04/24 15:31 05/04/24 15:31 05/04/24 15:31 05/04/24 15:31 05/04/24 15:31
Last Documented Vital Signs
Temp Pulse Resp BP Pulse Ox
97.8 F 70 15 118/67 98
05/04/24 15:31 05/04/24 19:30 05/04/24 19:30 05/04/24 19:00 05/04/24 19:30
MDM/Problems Addressed
MDM/Problems Addressed:
Patient remains in sinus rhythm during prolonged course of observation ED. As such, patient will be discharged home, with recommendation to continue his home medication, including metoprolol and Eliquis. Advised cardiology follow-up as an
outpatient, along with recommendation to discontinue amoxicillin, along with increased fluid intake.
*Critical Care Note
Total Time (30-74mins, 75-104mins- exclusive of procedures): Not Applicable
ED Attending Note
-
Portions of this chart may have been created with voice recognition software.� Occasional wrong word or��sound alike� substitutions may have occurred due to the inherent limitations of voice recognition software.
Discharge Plan
Departure
Patient Disposition: Home (Routine Discharge)
Date of Disposition: 05/04/24
Time of Disposition: 19:37
Patient with high blood pressure during this ER visit?: Yes
Condition: Good
Discharge Problem:
Atrial fibrillation
Instructions: Atrial Fibrillation (DC)
Prescriptions:
No Action
Eliquis 5 MG tablet
5 mg PO BID
losartan 50 MG tablet
50 mg PO DAILY
atorvastatin 40 MG tablet
40 mg PO QPM
amlodipine 5 mg Tablet
5 mg PO DAILY@1999
potassium 99 mg Tablet
49.5 mg PO DAILY
lansoprazole 30 mg Capsule,Delayed Release(Dr/Ec)
30 mg PO BIDPRN PRN (Reason: gerd)
metoprolol tartrate 25 mg Tablet
25 mg PO DAILY
aspirin 81 mg Tablet,Delayed Release (Dr/Ec)
81 mg PO DAILY
losartan 50 mg Tablet
25 mg PO QPM
docusate sodium [Stool Softener] 100 mg Capsule
100 mg PO DAILY
docusate sodium [Stool Softener] 100 mg Capsule
100 mg PO BID PRN (Reason: constipation)
Patient Comments:
11/25/2023, lunchtime and dinnertime as needed.
metoprolol tartrate 25 mg Tablet
12.5 mg PO DAILY@1999
Referrals:
Ming Aguero MD [Active] -
Diaz Rodriguez DO [Family Provider] -
Activity Restrictions/Additional Instructions:
As discussed, please follow-up with your primary housing director for reevaluation, as an outpatient.
Interventions
Interventions:
*Risk Screen - Suicide Last Done: 05/04/24 15:31
*General Assessment Last Done: 05/04/24 15:31
*Neglect/Abuse Screening Last Done: 05/04/24 15:31
ED- Fall Risk Assessment Last Done: 05/04/24 17:44
*ED COVID-19 Vaccine History Last Done: 05/04/24 17:44
*Nursing Disposition Last Done: 05/04/24 19:53
ED- Cardiac Assessment Last Done: 05/04/24 17:44
ED- Pulmonary Assessment Last Done: 05/04/24 17:44
Discharge Date and Time
Discharge Date/Time: 05/04/24 19:53
Print Language: SERBIAN
== END 2024-05-04 19:53 | disposition home or self-care (01) ==
LOC: EMR 15:17
PROVIDERS: EMERGENCY PHYSICIAN Emergency Medicine; FAMILY PHYSICIAN Family Medicine Sports Medicine
DX: I48.91 Unspecified atrial fibrillation (principal); I25.10 Atherosclerotic heart disease of native coronary artery without angina pectoris; I10 Essential (primary) hypertension; K21.9 Gastro-esophageal reflux disease without esophagitis; Z85.51 Personal history of malignant neoplasm of bladder; Z87.891 Personal history of nicotine dependence; Z90.49 Acquired absence of other specified parts of digestive tract; Z90.79 Acquired absence of other genital organ(s); Z95.0 Presence of cardiac pacemaker; Z95.820 Peripheral vascular angioplasty status with implants and grafts; Z79.01 Long term (current) use of anticoagulants; Z79.899 Other long term (current) drug therapy
CPT/HCPCS: 96360; 99284; 80053; 84484; 85025; 93005

== ENCOUNTER → 2024-07-16 13:52 | Outpatient (REF) | payer MEDICARE, OTHER, SELFPAY | LOC: MRI 13:52 | PROVIDERS: ATTENDING PHYSICIAN Internal Medicine Critical Care Medicine; FAMILY PHYSICIAN Family Medicine Sports Medicine | DX: C34.92 Malignant neoplasm of unspecified part of left bronchus or lung (principal); I73.9 Peripheral vascular disease, unspecified; I65.23 Occlusion and stenosis of bilateral carotid arteries; Z92.3 Personal history of irradiation | CPT/HCPCS: 70544; 70549; 70553; A9585 ==

== ENCOUNTER 2024-07-25 16:07 | Observation (INO) | payer MEDICARE, OTHER, SELFPAY ==
[2024-07-25] VITALS (15 sets, daily range): BP systolic 105–141; BP diastolic 72–98; BMI 27.2; BMI 26.4
[2024-07-25 11:18] LABS: ALT (SGPT) 15 U/L (0-50); AST (SGOT) 23 U/L (17-59); Alkaline Phosphatase 130 U/L (38-126); Blood Urea Nitrogen 14 mg/dl (9-20); Calcium 9.1 mg/dl (8.4-10.2); Carbon Dioxide 26 mmol/L (22-30); Chloride 104 mmol/L (98-107); Estimated Creatinine Clearance 55 ml/min; Glucose 112 mg/dl (70-99); Potassium 4.1 mmol/L (3.5-5.1); Sodium 138 mmol/L (135-145); Total Bilirubin 0.6 mg/dl (0.2-1.3); Total Protein 6.9 g/dl (6.3-8.2); eGFR > 60.00
[2024-07-25 11:20] LABS: % Basophils 0.8 % (0-2); % Immature Granulocytes 0.4 % (0-0.5); % Lymphocytes 14.3 % (20.5-51.1); % Monocytes 9.2 % (1.7-9.3); % Neutrophils 72.3 % (42.2-75.2); Absolute Eosinophils 0.2 10^3/uL (0-0.7); Absolute Lymphocytes 0.8 10^3/uL (1.2-3.4); Absolute Monocytes 0.5 10^3/uL (0.1-0.6); Absolute Neutrophils 3.9 10^3/uL (1.4-6.5); Hematocrit 40.7 % (39.0-52.0); Hemoglobin 13.6 g/dL (13.0-18.0); Mean Corp Hgb Conc. 33.4 g/dL (33.0-37.0); Mean Corpuscular Hgb 27.6 pg (27.0-31.0); Mean Corpuscular Volume 82.7 fL (80.0-94.0); Mean Platelet Volume 9.6 fL (7.4-10.4); Nucleated Red Blood Cells % 0 % (-); Platelet Count 116 10^3/uL (130-400); Red Blood Cell Count 4.92 10^6/uL (4.70-6.10); Red Cell Dist. Width 14.3 % (11.5-14.5); White Blood Cell Count 5.3 10^3/uL (4.8-10.8)
[2024-07-25 11:30] LABS: Troponin I 0.024 ng/ml
--- NOTE | 2024-07-25 11:50 | ED.GENMED ---
History of Present Illness
General
Chief Complaint: Chest Pain
Source: patient and records
Exam Limitations: none
Time Seen by Provider: 07/25/24 10:38
Nursing documentation reviewed up to this point in time: agreed with
History of Present Illness
History of Present Illness:
74-year-old male with a past medical history of hypertension, CAD, pacemaker, atrial fibrillation on Eliquis, bladder cancer status post bladder resection with urostomy who presents to the ER for evaluation of chest pain. Patient reports that he
woke up this morning and had severe episode of substernal chest pain. He says that it was a tightness/pressure sensation. He says that his lodge sales associate told him in the past that if he has chest pain he should take aspirin and so he chewed 3 baby
aspirin and after about 20 to 30 minutes his symptoms resolved. He called the cardiology office and was referred to the ER for assessment. He says he did not have any associated shortness of breath, nausea, diaphoresis. He was in his normal state
of health prior to onset. He says he is currently chest pain-free. He follows with Dr. Aguero for cardiology.
Past History
Past History
ED Past Medical History: CAD, Cancer (Bladder CA), GERD, HTN and Other (PVD, Diverticulitis, Vestibular vertigo)
ED Past Surgical History: Bowel resection (Sigmoid colon resection), Cardiac (Pacemaker), Cholecystectomy, Orthopedic (right ankle surgery, ), Urological ( Bladder removed, Urostomy, Prostatectomy) and Other (Stents left leg x 2)
Social History
Tobacco: Former smoker
Alcohol: Occasional
Personal:
Living: with family
Review of Systems
Review of Systems
All Other Systems: ROS reviewed and negative except as documented in HPI and ROS
Constitutional: Denies fever
Respiratory: Denies cough or trouble breathing
Cardiac: Reports chest pain; Denies palpitations
ABD/GI: Denies abdominal pain, nausea or vomiting
: Denies flank pain
Musculoskeletal: Denies edema, neck pain or back pain
Neurological: Denies headache
Phy Exam
Physical Exam
Physical Exam:
General: Awake, alert, oriented x3; no acute distress
Head: Normocephalic, atraumatic
Eyes: Conjunctiva normal
Throat: Airway intact, handling secretions
Neck: Trachea midline, no JVD
Lungs: Clear to auscultation bilaterally, no wheezing, rales, rhonchi
Heart: Regular rate, irregular rhythm; faint systolic murmur
Abd: Soft, non distended, nontender
Neuro: Cranial nerves grossly intact, speech fluid
Skin: Chronic venous stasis changes in the legs
Extremities: Trace edema in the legs, warm and well-perfused
Scores
Heart Failure Risk
Heart Failure Risk Score: Not Applicable
Heart Score for Chest Pain Patients
STEMI patient?: No
History: Slightly or Non-Suspicious
ECG: Nonspecific Repolarization
Age: >/= 65 years
Risk Factors: >/= 3 Risk Factors or History of CAD
Troponin: >1 - <3 x Normal Limit
Heart Score for Chest Pain Patients: 6
Heart Score Risk: 20.3% MACE over next 6 weeks
Withdrawal Assessment of Alcohol
Withdrawal Assessment Completed?: Not applicable
Course
Orders/Labs/Results
Orders:
Orders
07/25/24
Electrocardiogram (*1) Stat
Reason for Study: Chest Pain
Comment: DONE
07/25/24 10:15
Electrocardiogram (*1) Urgent
Reason for Study: Chest Pain
EKG- Treatment ONCE
07/25/24 10:41
Comprehensive Metabolic Panel Urgent
Troponin I Urgent
07/25/24 10:42
Complete Blood Count/With Diff Urgent
07/25/24 11:38
CARDIOLOGY CONSULT Urgent
Consulting Provider: Rosmery Bowie
Was physician already notified: Yes
Interrogate Pacemaker- Treatment ONCE
Comment: [employer]
07/25/24 11:47
Consult Cardiology [CARDIOLOGY CONSULT] Urgent
Consulting Provider: Rosmery Bowie
Was physician already notified: Yes
07/25/24 11:48
Electrocardiogram (*1) Urgent
Reason for Study: Chest Pain
EKG- Treatment ONCE
07/25/24 13:38
Troponin I Urgent
07/25/24 13:56
Echo 2D MMode Color/Doppler Urgent
Reason for Study: chest pain
Cardiology Consult: Rosmery Bowie
Abnormal Lab Results
07/25/24 07/25/24
10:41 10:42
Plt Count 116 L 10^3/uL
(130-400)
Absolute Lymphs (auto) 0.8 L 10^3/uL
(1.2-3.4)
Lymphocytes % 14.3 L %
(20.5-51.1)
Glucose 112 H mg/dl
(70-99)
Alkaline Phosphatase 130 H U/L
(38-126)
07/25/24 10:42
07/25/24 10:41
Vital Signs
Initial and Last Documented VS:
Initial Vital Signs
Temp Pulse Resp BP Pulse Ox
36.5 C 90 20 113/73 98
07/25/24 10:25 07/25/24 10:25 07/25/24 10:25 07/25/24 10:25 07/25/24 10:25
Last Documented Vital Signs
Temp Pulse Resp BP Pulse Ox
36.5 C 94 16 130/84 97
07/25/24 10:25 07/25/24 13:15 07/25/24 12:45 07/25/24 13:00 07/25/24 13:15
MDM/Problems Addressed
Differential Diagnosis Includes:
ACS/angina, GERD, symptomatic A-fib
MDM/Problems Addressed:
74-year-old male presents to the ER for evaluation after an episode of chest pain lasted approximately 30 to 40 minutes and resolves after taking aspirin. Vitals and exam as above. Send off labs including CBC and a CMP, troponin. Check chest
x-ray. EKG shows what appears to be underlying A-fib with frequent paced complexes. Will interrogate pacemaker. Reassess after the above.
Labs reviewed: CBC and CMP unremarkable. Troponin 0.024�repeat at 3 hours. Case discussed with cardiology for consultation for high risk chest pain.
Cardiology evaluated, plan for admission for observation, trend troponins, echocardiogram. Case discussed with hospitalist.
Chronic conditions affecting care:
CAD, pacemaker, hypertension, A-fib
*Pulse Oximetry
Patient hypoxic: no
*EKG
Interpreted by ED Provider?: Yes
Heart Rate: 112
Rate: tachycardiac
Rhythm: a-fib and ventricular paced
Ischemia: non-specific ST changes
*Critical Care Note
Total Time (30-74mins, 75-104mins- exclusive of procedures): Not Applicable
Data Reviewed
Review of Other/Old Records Reveals: Labs and Records
Source: patient and records
Patient Management
Discussion with other providers: Hospitalist (Discussed with hospitalist) and Project Leader (Discussed with cardiology)
Escalation/DeEscalation of care consider admission/obs:
Admission indicated
ED Attending Note
-
Portions of this chart may have been created with voice recognition software.� Occasional wrong word or��sound alike� substitutions may have occurred due to the inherent limitations of voice recognition software.
Discharge Plan
Departure
Patient Disposition: Admit
Date of Disposition: 07/25/24
Time of Disposition: 14:05
Admit to doctor: Tamiko
Presentation/result/management discussed w/ accepting MD/DO: Hospitalist
Discharge Problem:
Chest pain
Prescriptions:
No Action
Eliquis 5 MG tablet
5 mg PO BID
losartan 50 MG tablet
50 mg PO DAILY
atorvastatin 40 MG tablet
40 mg PO QPM
amlodipine 5 mg Tablet
5 mg PO DAILY@1999
potassium 99 mg Tablet
49.5 mg PO DAILY
lansoprazole 30 mg Capsule,Delayed Release(Dr/Ec)
30 mg PO BIDPRN PRN (Reason: gerd)
metoprolol tartrate 25 mg Tablet
25 mg PO DAILY
aspirin 81 mg Tablet,Delayed Release (Dr/Ec)
81 mg PO DAILY
losartan 50 mg Tablet
25 mg PO QPM
docusate sodium [Stool Softener] 100 mg Capsule
100 mg PO DAILY
docusate sodium [Stool Softener] 100 mg Capsule
100 mg PO BID PRN (Reason: constipation)
Patient Comments:
11/25/2023, lunchtime and dinnertime as needed.
metoprolol tartrate 25 mg Tablet
12.5 mg PO DAILY@1999
Referrals:
Diaz Rodriguez DO [Family Provider] -
Interventions
Interventions:
*Risk Screen - Suicide Last Done: 07/25/24 10:25
*General Assessment Last Done: 07/25/24 10:25
*Neglect/Abuse Screening Last Done: 07/25/24 10:25
ED- Cardiac Assessment Last Done: 07/25/24 11:08
Discharge Date and Time
Print Language: SLOVAK
--- NOTE | 2024-07-25 12:35 | CON.CAR ---
Addendum entered and electronically signed by Shanelle Suero DO 07/25/24 18:56:
I saw and examined the patient.
The Process Design Chemical Engineer's note was reviewed and I agree with the note.
Comment: Patient seen and examined in ED bed 1 with cardiac PAAniket Chirinos is a 74 yo M with PMH of bladder and prostate cancer status post removal and lymph node resection, more recently left lung cancer felt to be secondary to asbestosis exposure
status post completion of radiation followed at [facility], PAD with prior left popliteal stent and left SFA stent (Dr. Robertson), sinus bradycardia with sick sinus syndrome status post [employer] dual-chamber pacemaker, hypertension, hyperlipidemia,
paroxysmal atrial fibrillation on chronic Eliquis therapy. Historically his burden of afib has been <1%. He had previously been on flecainide however this was stopped post cath in 2021 which showed mod RCA disease. He reports ~3 weeks ago he had
about 5 minutes of sharp severe central chest pain with some L arm pain. He took aspirin which did improve his symptoms. He never sought medical attention as the pain resolved. He states then this morning around 4:30AM he had chest tightness which
woke him from sleep. He chewed 3-81mg asa with resolution of his pain. Also noted his HRs were in 80-110 range with lightheadedness which typically signals to him that he is in afib. He called our office and sent remote device transmission which
notes he did go into afib ~4:50AM. Initial trop 0.024. He tells me he is scheduled for EGD 08/01/24 at [place] for dysphagia with plan to balloon his esophagus and ensure no evidence of cancer. He also states he is being treated for cellulitis as
has LLE edema, worse than usual. He says lasix made him lightheaded in the past. Currently pain free. Last dose of eliquis was 07/25 AM.
General:NAD RA
HEENT: mmm
Respiratory: Bronchovesicular breath sounds, clear
Cardiac: S1/S2 and Irregular Rhythm, no murmur
GI: Soft, Non Tender, Non Distended and Normal Bowel Sounds
Musculoskeletal:3+ of LLE, 2+ of RLE
Skin: PPM
Neuro: AO x 3
Plan:
Chest pain with known coronary artery disease
-Currently chest pain-free with now 2 cardiac troponins flat at 0.02
-2D echocardiogram with normal biventricular size and systolic function with no regional wall motion abnormalities. No pericardial effusion.
-If patient remains pain-free with no significant elevation of cardiac troponin will proceed with Lexiscan nuclear stress test tomorrow
-Continue medical therapy; optimize antianginal regimen
-Check fasting lipid profile
History of PAF currently in atrial fibrillation; sick sinus syndrome status post pacemaker
-Symptoms may be related to atrial fibrillation. Continue Eliquis anticoagulation.
-Patient is scheduled for EGD with esophageal ballooning and possible biopsies reportedly suspicion for malignancy at [facility] on 08/01/2024.
-Will pursue rate control strategy pending [facility] evaluation. Can consider outpatient cardioversion (would avoid ALTA given dysphagia or would need GI clearance) and/or EP evaluation for ablation as an outpatient in the future
History of PAD followed by Dr. Robertson
Chronic bilateral lower extremity edema, right greater than left.
-Lower extremity Doppler negative for DVT
-He does have some degree of known lymphedema status post prior lymph node resection.
-Check proBNP. Hold off adding Lasix at this time
-compression stockings
N.p.o. after midnight for anticipated stress test
Original Note:
Consultation
Consultation Request
Date/Time Consultation Performed: 07/25/24
Requesting Provider: Dr. Mccord
Performing Provider: Ivy Hickey PA-C for Dr. Suero
Reason for Consultation: CP
Medical History
-
Chief Complaint: CP
History of Present Illness:
Patient is a 74 yo M with PMH of bladder and prostate cancer status post removal and lymph node resection, more recently left lung cancer felt to be secondary to asbestosis exposure status post completion of radiation followed at [facility], PAD with
prior left popliteal stent and left SFA stent, sinus bradycardia with sick sinus syndrome status post [employer] dual-chamber pacemaker, hypertension, hyperlipidemia, paroxysmal atrial fibrillation on chronic Eliquis therapy. Historically his
burden of afib has been <1%. He had previously been on flecainide however this was stopped post cath in 2021 which showed mod RCA disease. He reports ~3 weeks ago he had about 5 minutes of sharp severe central chest pain with some L arm pain. He
took aspirin which did improve his symptoms. He never sought medical attention as the pain resolved. He states then this morning around 4:30AM he had chest tightness which woke him from sleep. He chewed 3-81mg asa with resolution of his pain. Also
noted his HRs were in 80-110 range with lightheadedness which typically signals to him that he is in afib. He called our office and sent remote device transmission which notes he did go into afib ~4:50AM. Initial trop 0.024. He tells me he is
scheduled for EGD 08/01/24 at [place] for dysphagia with plan to balloon his esophagus and ensure no evidence of cancer. He also states he is being treated for cellulitis as has LLE edema, worse than usual. He says lasix made him lightheaded in the
past. Currently pain free. Last dose of eliquis was 116 AM.
PMH:
PAF
Chronic OAC with eliquis
Stage 4 bladder/colon cancer status post resection with lymph node resection, resultant LLE lymphedema
Left lung cancer felt to be secondary to asbestosis exposure status post completion of radiation followed at [facility]
Dysphagia, being worked up by [facility] with plan for upcoming EGD 08/01/24
CAD, mod RCA disease by cath 2021, medically managed
PAD with prior left popliteal stent and left SFA stent
Sinus bradycardia with sick sinus syndrome status post [employer] dual-chamber pacemaker
hypertension
hyperlipidemia
GERD
Former tobacco use
Past Medical History
Past Medical History: Other (in HPI)
Social History
Tobacco: Former Smoker
Personal:
Living: With Family
Employment: Retired
Family History
Family History: CAD
Allergies / Home Medications
Allergy/AdvReac Type Severity Reaction Status Date / Time
adhesive tape Allergy Rash Verified 07/25/24 10:28
Iodine and Iodide Containing Allergy Shortness Verified 07/25/24 10:28
Produc of Breath
Opioids - Morphine Analogues Allergy Nausea / Verified 07/25/24 10:28
Vomiting
shellfish derived Allergy Shortness Verified 07/25/24 10:28
of Breath
�Medication �Instructions �Recorded �Confirmed �Type
apixaban 5 mg tablet (Eliquis) 5 mg PO BID Blood clot 10/06/21 05/21/23 History
prevention/tx
atorvastatin 40 mg tablet 40 mg PO QPM 04/22/22 11/25/23 History
losartan 50 mg tablet 50 mg PO DAILY 04/22/22 11/25/23 History
amlodipine 5 mg tablet 5 mg PO DAILY@199903/08/23 11/25/23 History
lansoprazole 30 mg capsule,delayed 30 mg PO BIDPRN PRN gerd 03/08/23 11/25/23 History
release
metoprolol tartrate 25 mg tablet 25 mg PO DAILY 03/08/23 11/25/23 History
potassium 99 mg tablet 49.5 mg PO DAILY 03/08/23 11/25/23 History
aspirin 81 mg tablet,delayed 81 mg PO DAILY 04/12/23 11/25/23 History
release
docusate sodium 100 mg capsule 100 mg PO BID PRN constipation 11/25/23 11/25/23 History
(Stool Softener)
docusate sodium 100 mg capsule 100 mg PO DAILY 11/25/23 11/25/23 History
(Stool Softener)
losartan 50 mg tablet 25 mg PO QPM 11/25/23 11/25/23 History
metoprolol tartrate 25 mg tablet 12.5 mg PO DAILY@199911/25/23 11/25/23 History
Review of Systems
-
History Source: Patient
All other systems: Negative unless noted
Physical Exam
Vital Signs
Temp Pulse Resp BP Pulse Ox
97.7 F 100 20 119/81 98
07/25/24 10:25 07/25/24 11:00 07/25/24 10:25 07/25/24 11:00 07/25/24 11:00
Lab Results
07/25/24 10:42
07/25/24 10:41
Troponin I 0.024 ng/ml 07/25/24 10:41
Physical Exam
General: No Apparent Distress and Comfortable
HEENT: Normocephalic, Anicteric and Moist Mucous Membranes
Respiratory: Clear and Non Labored Respirations
Cardiac: S1/S2 and Irregular Rhythm
GI: Soft, Non Tender, Non Distended and Normal Bowel Sounds
Musculoskeletal: No Clubbing, No Cyanosis and Edema (3+ of LLE, 2+ of RLE)
Skin: Warm, Dry and Other (PPM scar)
Neuro: AO x 3
Impression / Plan
-
Primary Technical Project Coordinator: Dr. Aguero
Assessment:
Presentation with CP
PAF
Chronic OAC with eliquis
Stage 4 bladder/colon cancer status post resection with lymph node resection, resultant LLE lymphedema
Left lung cancer felt to be secondary to asbestosis exposure status post completion of radiation followed at [facility]
Dysphagia, being worked up by [facility] with plan for upcoming EGD 08/01/24
CAD, mod RCA disease by cath 2021, medically managed
PAD with prior left popliteal stent and left SFA stent
Sinus bradycardia with sick sinus syndrome status post [employer] dual-chamber pacemaker
hypertension
hyperlipidemia
GERD
Former tobacco use
Cardiac cath 10/2021: mod RCA disease
ECHO 11/11/22: EF 55 to 60%, mild concentric LVH, stage II diastolic dysfunction, mild MR, mild AR
Plan:
-Patient presented to ER with episode of chest pain which was improved with aspirin. He also reports a more severe episode which was shorter lasting approximately 3 weeks ago. last cath 10/2021 with mod RCA disease
-Currently chest pain-free.
-He is noted to be in atrial fibrillation by EKG and review of ER telemetry
-Initial troponin 0.024, trend
-Check echo, last from 2022 as above
-check lipids in AM. on lipitor as OP
-Last dose of Eliquis was this morning. Will plan to hold Eliquis and initiate heparin pending results of troponin trend and echo
-Of note, situation complex as also scheduled for EGD on 08/01 at [place] for possible esophageal ballooning as patient with dysphagia. Also reportedly they are supposed to be looking for cancer
-Would attempt to optimize antianginal therapy as able - increase BB if able for both angina and afib.
-If troponins remain within acceptable range, echo okay, and patient without recurrence of chest pain, would consider plan for medical therapy at present and after EGD completed, consider for cardiac catheterization followed by possible
cardioversion if he remains in A-fib. Would also consider utility of antiarrhythmic drug therapy and eventual EP evaluation for ablation
-Also with bilateral lower extremity edema, right greater than left. He does have some degree of known lymphedema status post prior lymph node resection. Check proBNP. He reports in the past Lasix made him lightheaded. Will order compression
stockings. Peripheral ultrasound negative for DVT
-d/w ER
Data Reviewed
-
EKG: Tracing Personally Visualized and interpreted
Ultrasound: Report Reviewed by me
Medical Tests (Nuc Med, Echo etc): Report Reviewed by me
Labs: Labs Reviewed by me
Old Records: Reviewed
[2024-07-25 14:31] LABS: Troponin I 0.027 ng/ml
--- NOTE | 2024-07-25 14:43 | W.PN.UPDATE ---
Update Note
Progress Note Update
This is an addendum to H&P written by CASS Callahan
I saw and examined the patient.
The COMPENSATION SUPERVISOR's note was reviewed and I agree with the note.
Comment:
Mr. Taran Hernandez is a 74 yo man with hx essential HTN, HLD, afib on Eliquis, s/p PPM, bladder cancer s/p bladder resection with urostomy (4-5 years ago), lung cancer s/p radiation (completed 1 month ago) who presents to the ER with severe
substernal chest pain this morning. He took 3 baby aspirin with relief but then returned 2 hour later prompting visit to the ER.
Triage VS: T 36.5, P 90, RR 20, BP 113/73, SpO2 98%. Labs unremarkable. Trop 0.024--> 0.027
On exam patient conversant, in no acute distress. CV: S1, S2, RRR; Chest clear. B/l LE venous stasis; LLE swelling greater than right
LE US: IMPRESSION: Normal. No evidence of deep venous thrombosis.
Chest pain
-appreciate cardiology
-admit to observation
-trend Troponin
-hold Eliquis and start heparin without bolus this evening
-follow up TTE results
-per cardiology, if Troponin and TTE OK would plan for medical therapy followed by cardiac cath post scheduled EGD on 08/01 at [facility] (for possible esophageal ballooning and evaluation)
LLE swelling
patient started on keflex for LLE cellulitis yesterday - OK to continue
DVT PPx hep gtt this evening
FULL CODE
--- NOTE | 2024-07-25 14:57 | HPS.HSE ---
Family Physician
<ELVIRA Ugalde - Last Filed: 07/25/24 19:29>
-
Family Physician: Diaz Rodriguez
Chief Complaint
<ELVIRA Ugalde - Last Filed: 07/25/24 19:29>
-
chest pain
History of Present Illness
Patients a 74-year-old male with past medical history significant for hypertension, CAD, PAD, hyperlipidemia, atrial fibrillation, bladder cancer s/p bladder resection with urostomy and lung cancer s/p radiation who presented to [facility] for
evaluation of chest tightness this morning. Patient reports he woke at approximately 0430 with chest tightness where he took two baby aspirins and tightness resolved in about 20 mins. He stayed awake, made himself some breakfast and had another
episode of chest tightness at 0630. He called to notify cardiology office who did a remote read of pacemaker and offered to schedule an appointment in office as soon as they would be available or he could come to ED for evaluation. He elected to
come to ED. Patient reports some lightheadedness this morning as well, claims it is normal for him when he goes into a-fib at home. Denies any cough, shortness of breath, nausea, vomiting, constipation or diarrhea.
Medical History
<ELVIRA Ugalde - Last Filed: 07/25/24 19:29>
Past Medical History
Past Medical History: Reports Other
Additional Past Medical History:
hypertension
CAD
PAD
hyperlipidemia
atrial fibrillation
GERD
bladder cancer s/p bladder resection with urostomy
lung cancer s/p radiation
Past Surgical History: Reports Other
Additional Past Surgical History:
pacemaker
cardiac cath
bowel resection
prostatectomy
bladder resection with urostomy
left leg stents x2
Social History
Tobacco: Former Smoker (quit 30 years ago)
Alcohol: Occasional
Drug: None
Personal:
Living: With Family
Employment: Retired
Family History
Family History: Not pertinent
Allergies / Home Medications
Allergies reflects when Allergies were last updated in [employer].
Home Medications with original date entered in [employer]
<Rosa Morrison MD - Last Filed: 07/25/24 19:06>
Allergies / Home Medications
Allergy/Medication List:
Allergies
Allergy/AdvReac Type Severity Reaction Status Date / Time
adhesive tape Allergy Rash Verified 07/25/24 10:28
Iodine and Iodide Containing Allergy Shortness Verified 07/25/24 10:28
Produc of Breath
Opioids - Morphine Analogues Allergy Nausea / Verified 07/25/24 10:28
Vomiting
shellfish derived Allergy Shortness Verified 07/25/24 10:28
of Breath
Home Medications
apixaban 5 mg tablet (Eliquis) 5 mg PO BID Blood clot prevention/tx 10/06/21
atorvastatin 40 mg tablet 40 mg PO QPM High Cholesterol 04/22/22
losartan 50 mg tablet 25 mg PO BID Blood Pressure 04/22/22
lansoprazole 30 mg capsule,delayed release 30 mg PO BID Gastrointestinal Issue 03/08/23
aspirin 81 mg tablet,delayed release 81 mg PO DAILY Blood Clot Prevention/Tx 04/12/23
docusate sodium 100 mg capsule (Stool Softener) 100 mg PO BID constipation 11/25/23
metoprolol tartrate 25 mg tablet 12.5 mg PO BID Blood Pressure 11/25/23
cephalexin 500 mg capsule 500 mg PO BID Infection 07/25/24
psyllium 1 packet PO DAILY Gastrointestinal Issue 07/25/24
Review of Systems
<ELVIAR Ugalde - Last Filed: 07/25/24 19:29>
-
History Source: Patient
Constitutional: Reports No Symptoms
EENT: Reports No Symptoms
Respiratory: Reports No Symptoms
Cardiac: Reports Chest Pain (tightness x2 today, currently pain free )
Abdomen/GI: Reports No Symptoms
: Reports No Symptoms
Musculoskeletal: Reports No Symptoms
Skin: Reports No Symptoms
Neurological: Reports No Symptoms
Endocrine: Reports No Symptoms
Hematologic/Lymphatic: Reports No Symptoms
Psych: Reports No Symptoms
Physical Exam
<ELVIRA Ugalde - Last Filed: 07/25/24 19:29>
Vital Signs
Vital Signs
Temp Pulse Resp BP Pulse Ox
97.7 F 94 16 130/84 97
07/25/24 10:25 07/25/24 13:15 07/25/24 12:45 07/25/24 13:00 07/25/24 13:15
Physical Exam
General: Well Developed, Well Nourished, No Apparent Distress, Comfortable and Conversant
HEENT: NormoCephalic, Moist mucous membranes, Atraumatic, PERRLA, [place] Conjunctivae, Nose Appears Normal, Ears Appear Normal and Neck Nontender
Respiratory: Clear, Non Labored Respirations and Decreased Breath Sounds
Cardiac: S1/S2 and Irregular Rhythm; No Murmur, Rub or Gallop
Breast: Deferred by me
GI: Soft, Non Tender, Non Distended and Normal Bowel Sounds; No Organomegaly
Rectal: Deferred by Provider
Genito-urinary: Other (urostomy, draining clear yellow urine )
Musculoskeletal: No Clubbing, No Cyanosis, Edema, Left Lower Extremity and Edema, Right Lower Extremity
Skin: Warm and IV/Catheter Site; No Rash
Neuro: Nonfocal/grossly intact
Hematologic/Lymphatic: No Lymphadenopathy
Psych: Calm and Intact Judgment/Insight
Laboratory Results
<ELVIRA Ugalde - Last Filed: 07/25/24 19:29>
-
07/25/24 10:42
07/25/24 10:41
Laboratory Results
Total Bilirubin 0.6 mg/dl (0.2-1.3) 07/25/24 10:41
AST 23 U/L (17-59) 07/25/24 10:41
ALT 15 U/L (0-50) 07/25/24 10:41
Alkaline Phosphatase 130 U/L (38-126) H 07/25/24 10:41
Troponin I 0.027 ng/ml 07/25/24 13:38
Data Reviewed
<ELVIRA Ugalde - Last Filed: 07/25/24 19:29>
-
Ultrasound: Report Reviewed by me (Peripheral Vascular US: Normal. No evidence of deep venous thrombosis.)
Medical Tests (Nuc Med, Echo, EKG etc): Report Reviewed by me (EKG: ATRIAL FIBRILLATION WITH A DEMAND PACEMAKER SEPTAL INFARCT (CITED ON OR BEFORE 25-JUL-2024) ABNORMAL ECG)
Lab Data: Labs Reviewed by me (troponin 0.024, 0.027)
Impression/Plan
<ELVIRA Ugalde - Last Filed: 07/25/24 19:29>
-
IMPRESSION/PLAN:
#chest pain
EKG: ATRIAL FIBRILLATION WITH A DEMAND PACEMAKER
SEPTAL INFARCT (CITED ON OR BEFORE 25-JUL-2024)
Troponin: 0.024, 0.027
ECHO: Pending
- Admit to IVU
- Consult Cardiology DCA
- Heparin gtt
- NPO at midnight for cath tomorrow
#hypertension
- continue amlodipine, losartan, and metoprolol
#hyperlipidemia
#CAD
#PAD
- continue aspirin and atorvastatin
#atrial fibrillation
- continue metoprolol
- hold Eliquis
- start heparin gtt
#GERD
- continue lansoprazole
#bladder cancer
s/p bladder resection with urostomy
#lung cancer
s/p radiation
follow with [facility]
- continue to follow up out patient
Code Status: Full Code
DVT Prophylaxis: Heparin gtt
[2024-07-25 15:25] LABS: NT-proBNP 1030 pg/ml
[2024-07-25] MEDS: PROTONIX 40 MG PO (21:01)
[2024-07-25] MEDS: ELIQUIS 5 MG PO (21:01)
[2024-07-25] MEDS: KEFLEX 500 MG PO (21:02)
[2024-07-25] MEDS: COLACE 100 MG PO (21:02)
[2024-07-25] MEDS: COZAAR 25 MG PO (21:02)
[2024-07-25] MEDS: LIPITOR 40 MG PO (21:03)
[2024-07-25 21:48] LABS: Troponin I 0.031 ng/ml
--- NOTE | 2024-07-25 22:06 | PTCARENOTE ---
Pt received from ED to [facility]-2. Pt oriented to room and call gonzalez.
[2024-07-25] MEDS: LOPRESSOR 12.5 MG PO (22:52)
[2024-07-25 23:05] LABS: Hematocrit 41.3 % (39.0-52.0); Hemoglobin 14.2 g/dL (13.0-18.0); Mean Corp Hgb Conc. 34.4 g/dL (33.0-37.0); Mean Corpuscular Hgb 27.9 pg (27.0-31.0); Mean Corpuscular Volume 81.1 fL (80.0-94.0); Mean Platelet Volume 10.2 fL (7.4-10.4); Platelet Count 108 10^3/uL (130-400); Red Blood Cell Count 5.09 10^6/uL (4.70-6.10); Red Cell Dist. Width 14.1 % (11.5-14.5); White Blood Cell Count 5.8 10^3/uL (4.8-10.8)
[2024-07-25 23:10] LABS: APTT 38.4 Sec (23.4-35.0)
[2024-07-26 03:51] VITALS: BP 116/69
[2024-07-26 06:00] VITALS: BMI 26.5
[2024-07-26 07:00] VITALS: BP 126/69
[2024-07-26] MEDS: LOPRESSOR 12.5 MG PO (08:15)
[2024-07-26] MEDS: ELIQUIS 5 MG PO ×2 (08:15→20:25)
[2024-07-26] MEDS: KEFLEX 500 MG PO ×2 (08:15→20:24)
[2024-07-26] MEDS: METAMUCIL, KONSYL 1 PACKET PO (08:15)
[2024-07-26] MEDS: COZAAR 25 MG PO ×2 (08:15→20:25)
[2024-07-26] MEDS: COLACE 100 MG PO ×2 (08:16→20:24)
[2024-07-26] MEDS: PROTONIX 40 MG PO ×2 (08:16→20:25)
[2024-07-26] MEDS: ASPIR LOW (ENTERIC COATED) 81 MG PO (08:16)
[2024-07-26 09:05] LABS: Hematocrit 42.1 % (39.0-52.0); Hemoglobin 14.2 g/dL (13.0-18.0); Mean Corp Hgb Conc. 33.7 g/dL (33.0-37.0); Mean Corpuscular Hgb 27.7 pg (27.0-31.0); Mean Corpuscular Volume 82.2 fL (80.0-94.0); Mean Platelet Volume 10.5 fL (7.4-10.4); Platelet Count 109 10^3/uL (130-400); Red Blood Cell Count 5.12 10^6/uL (4.70-6.10); Red Cell Dist. Width 14.2 % (11.5-14.5); White Blood Cell Count 6.3 10^3/uL (4.8-10.8)
[2024-07-26 09:33] LABS: ALT (SGPT) 15 U/L (0-50); AST (SGOT) 25 U/L (17-59); Albumin 3.7 g/dl (3.5-5.0); Alkaline Phosphatase 109 U/L (38-126); Blood Urea Nitrogen 16 mg/dl (9-20); Carbon Dioxide 27 mmol/L (22-30); Chloride 101 mmol/L (98-107); Estimated Creatinine Clearance 55 ml/min; Glucose 93 mg/dl (70-99); HDL Cholesterol 63 mg/dl; LDL Cholesterol, Calculated 30 mg/dl; Sodium 137 mmol/L (135-145); Total Bilirubin 1.1 mg/dl (0.2-1.3); Total Cholesterol 109 mg/dl (50-199); Total Protein 6.6 g/dl (6.3-8.2); Triglyceride 84 mg/dl (10-149); Very Low Density Lipoprotein 16 mg/dl (0-30); eGFR > 60.00
[2024-07-26 10:39] LABS: Glycohemoglobin (HgbA1c) 5.5 % (4.0-5.6)
[2024-07-26] MEDS: LEXISCAN 0.4 MG IV (11:33)
[2024-07-26 15:00] VITALS: BP 102/70
--- NOTE | 2024-07-26 15:17 | W.PN.HOSP.TC ---
Today's Communication/Plan
-
Await cardiology recommendations after equivocal stress test
COVID, flu panel
Assessment / Plan
Assessment / Plan
Physical Exam
General: Well Developed, Well Nourished, No Apparent Distress, Comfortable and Conversant
HEENT: NormoCephalic, Moist mucous membranes, Atraumatic, PERRLA, [place] Conjunctivae, Nose Appears Normal, Ears Appear Normal and Neck Nontender
Respiratory: Clear, Non Labored Respirations and Decreased Breath Sounds
Cardiac: S1/S2 and Irregular Rhythm; No Murmur, Rub or Gallop
Breast: Deferred by me
GI: Soft, Non Tender, Non Distended and Normal Bowel Sounds; No Organomegaly
Rectal: Deferred by Provider
Genito-urinary: Other (urostomy, draining clear yellow urine )
Musculoskeletal: No Clubbing, No Cyanosis, Edema, Left Lower Extremity and Edema, Right Lower Extremity
Skin: Warm and IV/Catheter Site; No Rash
Neuro: Nonfocal/grossly intact
Hematologic/Lymphatic: No Lymphadenopathy
Psych: Calm and Intact Judgment/Insight
#chest pain
-Stress test today equivocal
�Left heart cath as per cardiology
-ECHO: Pending
-Echo 60 to 65%, no wall motion abnormality
�Follow-up COVID, influenza
� X-ray reviewed, no clinical evidence of pneumonia at this time
� proBNP 1030, hold diuresis, defer to cardiology�appears to be below his weight reported at this point and appears euvolemic
#hypertension
- continue amlodipine, losartan, and metoprolol
#hyperlipidemia
#CAD
#PAD
- continue aspirin and atorvastatin
#atrial fibrillation
- continue metoprolol
- Eliquis
#GERD
- continue lansoprazole
#bladder cancer
s/p bladder resection with urostomy
#lung cancer
s/p radiation
follow with [facility]
- continue to follow up out patient
Code Status: Full Code
DVT Prophylaxis: Eliquis
Anticipated Discharge: Within 24 hours
Subjective/Interval History
-
Date of Service: July 26, 2024
Stress test today, no chest pain
Objective Data
-
Labs:
Laboratory Results
07/26/24
08:13
WBC 6.3
Hgb 14.2
Hct 42.1
Plt Count 109 L
Sodium 137
Potassium 4.0
Chloride 101
Carbon Dioxide 27
BUN 16
Creatinine 1.2
Glucose 93
Calcium 9.0
Total Bilirubin 1.1
AST 25
ALT 15
Alkaline Phosphatase 109
Vital Signs:
Vital Signs
Temp Pulse Resp BP Pulse Ox
97.5 F 87 18 126/69 97
07/26/24 07:00 07/26/24 07:00 07/26/24 07:00 07/26/24 07:00 07/26/24 08:15
I&O
07/25/24 07/26/24 07/27/24
06:59 06:59 06:59
Output Total 2200 / 2200
Balance -2200 / -2200
Review of Systems
-
History Source: Patient
All other systems: Not reviewed unless documented
Data Reviewed
-
Diagnostic Radiology: Report Reviewed by me
Labs: Labs Reviewed by me
--- NOTE | 2024-07-26 16:19 | W.PN.UPDATE ---
Update Note
Progress Note Update
called and reviewed results of stress test (preserved EF, no active ischemia), echo (preserved EF, mild valve disease), and CXR with patient. we discussed will need to attempt to rate control patient in afib due to upcoming appt next week for EGD at
[facility] 08[facility]01 as would be unable to stop OAC for procedure. he expresses understanding of this. overall HR trends in afib ~100 BPM on review of tele however at times noted to have rapid rates. will increase lopressor dose to 25mg BID and follow.
patient hoping for DC in AM.
[2024-07-26] MEDS: LIPITOR 40 MG PO (16:37)
[2024-07-26 19:00] VITALS: BP 108/71
[2024-07-26] MEDS: LOPRESSOR 25 MG PO (20:25)
--- NOTE | 2024-07-26 20:28 | W.PN.CARDCBS ---
Today's Communication / Plan
-
-Lexiscan stress test today
-Rate control strategy for paroxysmal atrial fibrillation pending upcoming procedures at [facility] which would require anticoagulation interruption
-Increase Lopressor to 25 mg twice daily
-Outpatient follow-up with cardiology discuss rhythm control strategies/EP consult
-Start Lasix 20 mg once daily
-Anticipate discharge 24-48 hours pending stress test result
Impression / Plan
-
Primary Flakeboard Line Tender: Dr. Aguero
Assessment:
Presentation with CP
PAF
Chronic OAC with eliquis
Stage 4 bladder/colon cancer status post resection with lymph node resection, resultant LLE lymphedema
Left lung cancer felt to be secondary to asbestosis exposure status post completion of radiation followed at [place]
Dysphagia, being worked up by [place] with plan for upcoming EGD 08/01/24
CAD, mod RCA disease by cath 2021, medically managed
PAD with prior left popliteal stent and left SFA stent
Sinus bradycardia with sick sinus syndrome status post [employer] dual-chamber pacemaker
hypertension
hyperlipidemia
GERD
Former tobacco use
Cardiac cath 10/2021: mod RCA disease
ECHO 11/11/22: EF 55 to 60%, mild concentric LVH, stage II diastolic dysfunction, mild MR, mild AR
Plan:
Chest pain with known coronary artery disease
-Currently chest pain-free with cardiac troponins flat
-2D echocardiogram with normal biventricular size and systolic function with no regional wall motion abnormalities. No pericardial effusion.
-Lexiscan stress test today
-Continue medical therapy; optimize antianginal regimen
-Lipid profile acceptable: Total cholesterol 109, LDL 30, HDL 63, triglycerides 84.
History of PAF currently in atrial fibrillation; sick sinus syndrome status post pacemaker
-Symptoms may be related to atrial fibrillation.
-Increase Lopressor to 25 mg twice daily
-Continue Eliquis anticoagulation.
-Patient is scheduled for EGD with esophageal ballooning and possible biopsies reportedly suspicion for malignancy at [facility] on 08/01/2024.
-Will pursue rate control strategy pending [facility] evaluation. Can consider outpatient cardioversion (would avoid ALTA given dysphagia or would need GI clearance) and/or EP evaluation for ablation as an outpatient in the future
History of PAD followed by Dr. Robertson
Chronic bilateral lower extremity edema, right greater than left.
-Lower extremity Doppler negative for DVT
-He does have some degree of known lymphedema status post prior lymph node resection.
-proBNP mildly elevated 1030
-Will start oral Lasix 20 mg once daily
Await stress test result
Progress Note - Flakeboard Line Tender
Subjective
Date of Service: July 26, 2024
Seen and examined this morning in cardiac services prior to stress test. Offers no further complaints of chest pain. No shortness of breath. Reviewed tentative plans
Objective
Labs:
07/26/24 08:13
07/26/24 08:13
Labs
Hgb 14.2 g/dL (13.0-18.0) 07/26/24 08:13
Hct 42.1 % (39.0-52.0) 07/26/24 08:13
Plt Count 109 10^3/uL (130-400) L 07/26/24 08:13
APTT 38.4 Sec (23.4-35.0) H 07/25/24 22:52
Sodium 137 mmol/L (135-145) 07/26/24 08:13
Potassium 4.0 mmol/L (3.5-5.1) 07/26/24 08:13
BUN 16 mg/dl (9-20) 07/26/24 08:13
Creatinine 1.2 mg/dL (0.7-1.3) 07/26/24 08:13
Glucose 93 mg/dl (70-99) 07/26/24 08:13
Troponins
07/25/24 07/25/24 07/25/24
10:41 13:38 18:07
Troponin I 0.024 0.027 Cancelled
07/25/24
21:16
Troponin I 0.031
Vital Signs and I&O:
Vital Signs
Temp Pulse Resp BP Pulse Ox
98.2 F 102 18 102/70 98
07/26/24 15:00 07/26/24 15:00 07/26/24 15:00 07/26/24 15:00 07/26/24 15:00
Vital Signs
Temp Pulse Resp BP Pulse Ox
98.2 F 102 18 102/70 98
07/26/24 15:00 07/26/24 15:00 07/26/24 15:00 07/26/24 15:00 07/26/24 15:00
Intake & Output
07/24/24 07/25/24 07/26/24 07/27/24
06:59 06:59 06:59 06:59
Intake Total 240 / 240
Output Total 2200 / 2200
Balance -2200 / -2200 240 / 240
Physical Exam
Physical Exam
General:NAD RA
HEENT: mmm
Respiratory: Bronchovesicular breath sounds, clear
Cardiac: S1/S2 and Irregular Rhythm, no murmur
GI: Soft, Non Tender, Non Distended and Normal Bowel Sounds
Musculoskeletal:2+ of LLE, 1+ of RLE
Skin: PPM
Neuro: AO x 3
[2024-07-26 23:00] VITALS: BP 130/78
[2024-07-27 03:00] VITALS: BP 126/81
[2024-07-27 06:00] VITALS: BMI 26.0
[2024-07-27 07:04] LABS: Hematocrit 41.8 % (39.0-52.0); Hemoglobin 14.3 g/dL (13.0-18.0); Mean Corp Hgb Conc. 34.2 g/dL (33.0-37.0); Mean Corpuscular Hgb 27.8 pg (27.0-31.0); Mean Corpuscular Volume 81.3 fL (80.0-94.0); Mean Platelet Volume 10.8 fL (7.4-10.4); Platelet Count 111 10^3/uL (130-400); Red Blood Cell Count 5.14 10^6/uL (4.70-6.10); White Blood Cell Count 5.9 10^3/uL (4.8-10.8)
[2024-07-27 07:14] LABS: COVID-19 Antigen Negative (Negative)
[2024-07-27 07:21] LABS: Blood Urea Nitrogen 21 mg/dl (9-20); Carbon Dioxide 27 mmol/L (22-30); Chloride 102 mmol/L (98-107); Estimated Creatinine Clearance 51 ml/min; Glucose 99 mg/dl (70-99); Potassium 3.8 mmol/L (3.5-5.1); Sodium 136 mmol/L (135-145); eGFR 57.29
[2024-07-27 07:35] VITALS: BP 121/78
[2024-07-27] MEDS: PROTONIX 40 MG PO (07:50)
[2024-07-27] MEDS: ASPIR LOW (ENTERIC COATED) 81 MG PO (07:50)
[2024-07-27] MEDS: LASIX 20 MG PO (07:50)
[2024-07-27] MEDS: COZAAR 25 MG PO (07:50)
[2024-07-27] MEDS: ELIQUIS 5 MG PO (07:50)
[2024-07-27] MEDS: LOPRESSOR 25 MG PO (07:50)
[2024-07-27] MEDS: KEFLEX 500 MG PO (07:51)
[2024-07-27] MEDS: COLACE 100 MG PO (07:51)
[2024-07-27] MEDS: METAMUCIL, KONSYL 1 PACKET PO (07:51)
[2024-07-27 11:58] VITALS: BP 102/67
--- NOTE | 2024-07-27 13:25 | W.PN.UPDATE ---
Update Note
Progress Note Update
Lexiscan nuclear stress test from 07/26/2024:
Fixed basal inferior defect most consistent with soft tissue attenuation; however, prior infarct is also possible. No evidence of ischemia.
Inconclusive ECG for ischemia given the pharmacological study.
Systolic function is normal. The ejection fraction is 53%.
Stress test findings do not necessitate further inpatient evaluation at this time.
He should follow-up with his die polisher after discharge as planned.
--- NOTE | 2024-07-27 13:41 | W.PN.HOSP.TC ---
Addendum entered and electronically signed by Tommy Howell MD 07/27/24 15:53:
[id number]
Original Note:
Today's Communication/Plan
-
lasix 20mg daily
increase lopressor to 25 mg bid
f/u bmp outpt
f/u cards as planned, f/u pcp within 1 week
further cardiac eval outpt
Assessment / Plan
Assessment / Plan
Physical Exam
General: Well Developed, Well Nourished, No Apparent Distress, Comfortable and Conversant
HEENT: NormoCephalic, Moist mucous membranes, Atraumatic, PERRLA, [place] Conjunctivae, Nose Appears Normal, Ears Appear Normal and Neck Nontender
Respiratory: Clear, Non Labored Respirations and Decreased Breath Sounds
Cardiac: S1/S2 and Irregular Rhythm; No Murmur, Rub or Gallop
Breast: Deferred by me
GI: Soft, Non Tender, Non Distended and Normal Bowel Sounds; No Organomegaly
Rectal: Deferred by Provider
Genito-urinary: Other (urostomy, draining clear yellow urine )
Musculoskeletal: No Clubbing, No Cyanosis, Edema, Left Lower Extremity and Edema, Right Lower Extremity
Skin: Warm and IV/Catheter Site; No Rash
Neuro: Nonfocal/grossly intact
Hematologic/Lymphatic: No Lymphadenopathy
Psych: Calm and Intact Judgment/Insight
#chest pain
-Stress test today equivocal
� Do not need inpatient evaluation at this time, follow-up with documentation manager for further evaluation if needed
� Follow-up cardiology as already planned
-ECHO: -Echo 60 to 65%, no wall motion abnormality, mild concentric left ventricular hypertrophy
�Follow-up COVID, influenza
� X-ray reviewed, no clinical evidence of pneumonia at this time
#hypertension
- continue amlodipine, losartan, and metoprolol
#hyperlipidemia
#CAD
#PAD
- continue aspirin and atorvastatin
#atrial fibrillation
Increase metoprolol to 25 mg twice daily
- Eliquis
#GERD
- continue lansoprazole
#bladder cancer
s/p bladder resection with urostomy
#lung cancer
s/p radiation
follow with Terrance Pena
- continue to follow up out patient
#Chronic bilateral lower extremity edema, right greater than left
� Lower extremity DVT negative for DVT
� Lymphedema noted status post prior lymph node resection
� Mildly elevated proBNP
� Started Lasix 20 mg daily
Follow BMP outpatient
Code Status: Full Code
DVT Prophylaxis: Eliquis
More than 30 minutes spent in discharge including
Final examination of the patient
Summarizing hospital stay
Instructions for continuing care to all relevant caregivers
Preparation of discharge records, prescriptions, and referral forms
Total time spent (36 in minutes):
Anticipated Discharge: Today
Subjective/Interval History
-
Date of Service: July 27, 2024
No acute events overnight, nuclear stress test was equivocal
Objective Data
-
Labs:
Laboratory Results
07/27/24
06:35
WBC 5.9
Hgb 14.3
Hct 41.8
Plt Count 111 L
Sodium 136
Potassium 3.8
Chloride 102
Carbon Dioxide 27
BUN 21 H
Creatinine 1.3
Glucose 99
Calcium 9.0
Vital Signs:
Vital Signs
Temp Pulse Resp BP Pulse Ox
99.1 F 90 20 102/67 98
07/27/24 11:58 07/27/24 11:58 07/27/24 11:58 07/27/24 11:58 07/27/24 11:58
I&O
07/26/24 07/27/24 07/28/24
06:59 06:59 06:59
Intake Total 720 / 720
Output Total 2200 / 2200 950 / 950
Balance -2200 / -2199 -230 / -230
Review of Systems
-
History Source: Patient
All other systems: Not reviewed unless documented
--- NOTE | 2024-07-27 13:45 | W.DS.TRANS ---
DC Summary - Electrician'S Helper
-
Discharge Instructions:
Sleep Apnea Risk Intermediate
Discharge Diagnosis/Procedures Chest pain
Chronic bilateral lower extremity edema, right
greater than left
Diet Low Cholesterol,Low Fat
Blood Work f/u bmp in 3-5 days with pcp
Others Tests Further cardiac testing as per outpatient
appointment manager
Instructions:
Stand-Alone Forms:
Changes to Home Medications: Yes
Discharge Medications:
DC Medications w/original date entered in [facility]
apixaban 5 mg tablet (Eliquis) 5 mg PO BID Blood clot prevention/tx 10/06/21
atorvastatin 40 mg tablet 40 mg PO QPM High Cholesterol 04/22/22
losartan 50 mg tablet 25 mg PO BID Blood Pressure 04/22/22
lansoprazole 30 mg capsule,delayed release 30 mg PO BID Gastrointestinal Issue 03/08/23
aspirin 81 mg tablet,delayed release 81 mg PO DAILY Blood Clot Prevention/Tx 04/12/23
docusate sodium 100 mg capsule (Stool Softener) 100 mg PO BID constipation 11/25/23
cephalexin 500 mg capsule 500 mg PO BID Infection 07/25/24
psyllium 1 packet PO DAILY Gastrointestinal Issue 07/25/24
furosemide 20 mg tablet 20 mg PO DAILY 30 days #30 tabs 07/27/24
metoprolol tartrate 25 mg tablet 25 mg PO BID 30 days #60 tabs 07/27/24
Home Medication Changes
furosemide 20 mg tablet 20 mg PO DAILY 30 days #30 tabs 07/27/24
metoprolol tartrate 25 mg tablet 25 mg PO BID 30 days #60 tabs 07/27/24
Pending Results: No
--- NOTE | 2024-07-27 13:58 | PTCARENOTE ---
07/27- Patient requests to speak with hand inserter operator about the 'lack of communication between these doctors. They just don't tell you anything.' Patient states he wants to sign out AMA. Validating therapeutic conversation to de-escalate patient. Patient
states, 'the nurses are just fine. You guys are good. But these doctors don't communicate with eachother, and they don't know what's going on. I'm just documenting everything.' Advised I reached out to both Hospitalist and Cardiology to clarify plan
of care. Patient is appreciative but states he still wants to leave. Discharge order is in, as per Hospitalist d/t Cardiology note that he is cleared for discharge from Cardiology standpoint. Patient is upset he was not seen by Cardiology today,
and states, 'see! this is what I am talking about. Just forget it. I'm leaving.'
[2024-07-27 14:07] VITALS: BP 117/71
--- NOTE | 2024-07-27 14:38 | CM ---
Patient seen bedside, for discharge today. Patient upset with Hospital stay, requesting risk management number- provided to patient. SMITH form provided, refused to sign, placed in chart, patient provided with copy. Patient reports he will transport
himself home, denies any needs. CM will continue to follow for all discharge planning needs.
Plan; home no needs.
== END 2024-07-27 14:34 | disposition home or self-care (01) ==
LOC: 4 WEST ACU 16:07
PROVIDERS: Nurse Practitioner Family; ADMITTING PHYSICIAN Student in an Organized Health Care Education/Training Program; ATTENDING PHYSICIAN Internal Medicine; EMERGENCY PHYSICIAN Emergency Medicine; FAMILY PHYSICIAN Family Medicine Sports Medicine; OTHER PHYSICIAN Internal Medicine Cardiovascular Disease
DX: I48.0 Paroxysmal atrial fibrillation (principal); R07.9 Chest pain, unspecified; I25.10 Atherosclerotic heart disease of native coronary artery without angina pectoris; I10 Essential (primary) hypertension; R07.2 Precordial pain; I73.9 Peripheral vascular disease, unspecified; K21.9 Gastro-esophageal reflux disease without esophagitis; I08.3 Combined rheumatic disorders of mitral, aortic and tricuspid valves; I70.0 Atherosclerosis of aorta; R06.02 Shortness of breath; J18.9 Pneumonia, unspecified organism; C34.92 Malignant neoplasm of unspecified part of left bronchus or lung; E78.5 Hyperlipidemia, unspecified; R60.0 Localized edema; I89.0 Lymphedema, not elsewhere classified; R13.10 Dysphagia, unspecified; Z90.49 Acquired absence of other specified parts of digestive tract; Z79.01 Long term (current) use of anticoagulants; Z85.51 Personal history of malignant neoplasm of bladder; Z95.0 Presence of cardiac pacemaker; Z87.891 Personal history of nicotine dependence; Z95.5 Presence of coronary angioplasty implant and graft; Z90.79 Acquired absence of other genital organ(s); Z79.82 Long term (current) use of aspirin; Z85.46 Personal history of malignant neoplasm of prostate; Z77.090 Contact with and (suspected) exposure to asbestos; Z92.3 Personal history of irradiation; Z95.820 Peripheral vascular angioplasty status with implants and grafts; Z82.49 Family history of ischemic heart disease and other diseases of the circulatory system; Z88.5 Allergy status to narcotic agent; Z91.013 Allergy to seafood; Z91.048 Other nonmedicinal substance allergy status; Z88.8 Allergy status to other drugs, medicaments and biological substances; Z91.041 Radiographic dye allergy status; Z11.52 Encounter for screening for COVID-19
CPT/HCPCS: 71046; 78452; 80048; 80053; 80061; 83036; 83880; 84484; 85025; 85027; 85730; 87502; 87811; 93005; 93017; 93288; 93306; 93971; 99285; A9500; G0378; J2785

== ENCOUNTER → 2024-12-25 10:54 | Outpatient (REF) | payer MEDICARE, OTHER, SELFPAY ==
[2024-12-25 12:10] LABS: % Basophils 0.7 % (0-2); % Eosinophils 2.3 % (0-6); % Immature Granulocytes 0.3 % (0-0.5); % Lymphocytes 16.1 % (20.5-51.1); % Monocytes 9.4 % (1.7-9.3); % Neutrophils 71.2 % (42.2-75.2); ALT (SGPT) 16 U/L (0-50); AST (SGOT) 23 U/L (17-59); Absolute Eosinophils 0.1 10^3/uL (0-0.7); Absolute Monocytes 0.6 10^3/uL (0.1-0.6); Absolute Neutrophils 4.3 10^3/uL (1.4-6.5); Albumin 4.1 g/dl (3.5-5.0); Alkaline Phosphatase 132 U/L (38-126); Blood Urea Nitrogen 20 mg/dl (9-20); Calcium 8.9 mg/dl (8.4-10.2); Carbon Dioxide 24 mmol/L (22-30); Chloride 109 mmol/L (98-107); Glucose 120 mg/dl (70-99); Hematocrit 42.2 % (39.0-52.0); Hemoglobin 14.6 g/dL (13.0-18.0); Mean Corp Hgb Conc. 34.6 g/dL (33.0-37.0); Mean Corpuscular Hgb 28.3 pg (27.0-31.0); Mean Corpuscular Volume 81.8 fL (80.0-94.0); Mean Platelet Volume 9.8 fL (7.4-10.4); Nucleated Red Blood Cells % 0 % (-); Platelet Count 124 10^3/uL (130-400); Potassium 3.5 mmol/L (3.5-5.1); Red Blood Cell Count 5.16 10^6/uL (4.70-6.10); Red Cell Dist. Width 14.6 % (11.5-14.5); Sodium 140 mmol/L (135-145); Total Bilirubin 0.8 mg/dl (0.2-1.3); eGFR > 60.00
== END ==
LOC: SDSPAT 10:54
PROVIDERS: ATTENDING PHYSICIAN Internal Medicine Cardiovascular Disease; FAMILY PHYSICIAN Family Medicine Sports Medicine
DX: I48.19 Other persistent atrial fibrillation (principal); I49.5 Sick sinus syndrome; Z95.0 Presence of cardiac pacemaker
CPT/HCPCS: 36415; 80053; 85025; 86850; 86900; 86901; 93005

== ENCOUNTER 2025-01-07 05:57 | Day surgery (SDC) | payer MEDICARE, OTHER, SELFPAY ==
[2024-12-25 11:09] VITALS: BMI 28.1
[2025-01-07] VITALS (12 sets, daily range): BP systolic 121–140; BP diastolic 66–78; BMI 28.1
[2025-01-07] MEDS: NSS 500 IV (07:16)
[2025-01-07 08:44] LABS: ACT-LR - POC 258 Seconds (116-155)
[2025-01-07 09:06] LABS: ACT-LR - POC 244 Seconds (116-155)
[2025-01-07 09:22] LABS: ACT-LR - POC 332 Seconds (116-155)
[2025-01-07 09:29] LABS: ACT-LR - POC 290 Seconds (116-155)
--- NOTE | 2025-01-07 09:44 | ITS.CL.ABL ---
Flat Machine Cutter - Ablation
Ablation
Procedure Report:
AFIB ablation:
Mr. Hernandez is a very pleasant 74 yr old gentleman with symptomatic persistent AF, is recommended for atrial fibrillation ablation.
Date of the Procedure:
01/07/2025
Indications:
Persistent atrial fibrillation
Pre-Operative Diagnosis:
Persistent atrial fibrillation
Post-Operative Diagnosis:
Persistent atrial fibrillation
Procedure Performed:
Atrial fibrillation ablation with Pulsed-Field approach for pulmonary vein isolation
Performing Physician:
Javier Bobo MD
Assistants:
EP staff
Anesthesia:
See anesthesia records
Detailed Description of the Procedure:
Written informed consent was obtained from the patient after a full explanation of the risks and benefits of the procedure including the risks of sedation and anesthesia.
The patient was brought to the electrophysiology laboratory in stable condition in fasting state. Continuous electrocardiographic and hemodynamic monitoring was initiated.
The initial rhythm was atrial paced rhythm.
The procedure site was meticulously prepared with surgical scrub and allowed to dry with no pooling. Sterile draping was applied to cover the procedure site. The image intensifier was draped with sterile bag and positioned over the patient. After
infusion of local anesthetic, vascular access was obtained under ultrasound guidance and sheaths were placed over guide wire as detailed below.
Sheath and Catheter Placement:
The following catheters / sheaths were placed
Sheaths:
��������� 17Fr steerable sheath ([employer]�, [employer]) in right femoral
��������� 9Fr in right femoral vein
Catheters:
��������� RADHA HD Grid mapping catheter � at locations of RA, LA
��������� Farawave� PFA catheter
��������� ICE catheter � AcuNav - at locations of RA, SVC, and RV.
Intracardiac ECHO:
An 8-Filipino AcuNav intracardiac ECHO (ICE) probe was advanced through the 9-Filipino sheath in the right femoral vein into the right atrium under fluoroscopic and ICE ultrasound image guidance and a baseline ECHO study was performed. The left atrial
size was normal. There was moderate tricuspid regurgitation. The aortic valve was grossly normal. There was normal left ventricular systolic functions. There is trace pericardial effusion. All the four veins were identified and has flow identified.
There was good flow noted in the JUAN C.
During the procedure, ICE was used for monitoring of complications, guidance of trans-septal puncture, monitor the catheter position and tracking ablation lesions. No change in the pericardial space noted throughout the procedure.
Trans-septal Puncture:
Heparin was initiated and infused to maintain appropriate ACT. A pigtail guidewire was advanced through the 8-Filipino sheath in the right femoral vein into the superior vena cava under fluoroscopic and ICE guidance. The 9-Filipino sheath was exchanged
for a Faradrive sheath which was advanced into the superior vena cava. A transseptal RF pigtail via Faradrive connect system was utilized to perform the trans-septal puncture. The apparatus was withdrawn until it was in contact with the fossa
ovalis. The position was adjusted based on fluoroscopy and ultrasound images from ICE. Under fluoroscopic, hemodynamic and ICE ultrasound guidance, left atrium was cannulated by applying RF energy. Once atrial septum was cannulated, the pigtail wire
was advanced through the needle into the left atrium. The guide wire was advanced into the left superior pulmonary vein. Both the sheath and the dilator was advanced into the left atrium. The dilator with the needle was withdrawn. Blood was
aspirated from the Faradrive sheath and arterial blood confirmed. The sheath was flushed. Saline injection noted into the left atrium on ICE. The mapping catheter was advanced in the sheath into the left pulmonary vein. Left atrial pressure was
measured.
3D Electroanatomic Mapping:
Using the HD Grid catheter advanced through sheath into the left atrium, an electroanatomic map (EAM) of the left atrium was created using [employer] mapping system. The map was used for localization of catheter position and tacking of ablation
lesions.
The EAM of the left atrium showed 4 pulmonary veins with all 4 veins electrically connected to the body the LA. It showed normal voltage on the posterior and anterior wall of the LA. The LA was mildly dilated in size.
Following the EAM, preparation were made for ablation.
Ablation:
Ablation # 1: Pulmonary vein Isolation:
Glycopyrrolate was not given due to the presence of dual chamber pacemaker.
Using [employer] pulsed wave ablation system, pulmonary vein isolation was achieved. First the ablation catheter was placed in the LSPV and ostial ablation lesions were performed in a counter clock russo approach all around the PV ostium
circumferentially using the Farapulse catheter in �[place]� formation. Then the catheter was placed on the antral location (in Disc/flower formation) and multiple ablation lesions were placed circumferentially on the antrum of the vein.
In the similar fashion, the LIPV were isolated.
Then the catheter was moved to right sided veins. The ostial and antral ablations were placed as noted above.
EPS and Confirmation of the PVI and bidirectional block:
Following achievement of entrance block at the pulmonary veins, pacing from the HD catheter in each of the four veins at 10 milliamps for 2 milliseconds showed entrance and exit block. All PVI were rechecked at the end of the case and remained
isolated. Entrance and exit block were demonstrated in all veins.
Post ablation Electroanatomic mapping:
Once ablation was completed, the EAM of the LA was done again in sinus rhythm with excellent demarcation of LA myocardium and isolated antral tissue. There was no significant scarring noted in the LA.
The JUAN C had healthy signals and was not isolated.
Procedure End
ICE study was done again that showed no epicardial accumulation. No complications noted.
Following the completion of the EP study, catheters were removed. Protamine 40 mg was given at the end of the procedure and ACT was checked repeatedly. The sheaths were removed and hemostasis achieved with �Figure of 8� and manual compression after
acceptable ACT is achieved.
Left atrial Pressure:
Pre-ablation: Mean LA pressure was 5mmHg
Post-ablation: Mean LA pressure was 9mmHg
Post-ablation: Mean RA pressure was 5mmHg
Estimated Blood loss:
<10 cc
Specimens Removed:
None.
Implants / Devices:
None
Urine output:
None
Packs / Drains/ Tubes:
None
Instrument / Sponge Count Correct:
Yes
Complications of the Procedure:
None
Condition of Patient at Time of Transfer:
Hemodynamically stable with no neurological or vascular compromise.
Summary:
Successful atrial fibrillation ablation with Pulsed Field approach for pulmonary vein isolation.
Figures from the Procedure:
Figure 1: The electroanatomic mapping (EAM) of the left atrium with bipolar voltage (purple indicates normal electrical activity with hernández as no myocardial muscle electric activity indicating a line of block or scar.
--- NOTE | 2025-01-07 14:48 | W.PN.UPDATE ---
Update Note
Progress Note Update
74 yo WM s/p PVI (same day). He denies cp, sob, konstantin diet, kramer cath draining, EKG Apaced, R fem site c/d/i no HT, soft. He will resume Eliquis tonight and continue metoprolol. Activity restrictions reviewed. He will f/u HEAT TREATER in 2 weeks. He is for d/c
home after 230p if groin stable
== END 2025-01-07 14:50 | disposition home or self-care (01) ==
LOC: CATH 05:57
PROVIDERS: ATTENDING PHYSICIAN Internal Medicine Cardiovascular Disease; FAMILY PHYSICIAN Family Medicine Sports Medicine
DX: I48.19 Other persistent atrial fibrillation (principal); Z79.01 Long term (current) use of anticoagulants; Z79.899 Other long term (current) drug therapy; I25.10 Atherosclerotic heart disease of native coronary artery without angina pectoris; I49.5 Sick sinus syndrome; E78.5 Hyperlipidemia, unspecified; I11.0 Hypertensive heart disease with heart failure; I73.9 Peripheral vascular disease, unspecified; Z85.118 Personal history of other malignant neoplasm of bronchus and lung; Z85.51 Personal history of malignant neoplasm of bladder; Z90.79 Acquired absence of other genital organ(s); Z92.3 Personal history of irradiation; Z92.21 Personal history of antineoplastic chemotherapy; Z79.82 Long term (current) use of aspirin; Z90.49 Acquired absence of other specified parts of digestive tract; I87.2 Venous insufficiency (chronic) (peripheral); K21.9 Gastro-esophageal reflux disease without esophagitis; K44.9 Diaphragmatic hernia without obstruction or gangrene; Z88.8 Allergy status to other drugs, medicaments and biological substances; K66.0 Peritoneal adhesions (postprocedural) (postinfection); Z88.5 Allergy status to narcotic agent; Z95.820 Peripheral vascular angioplasty status with implants and grafts
CPT/HCPCS: C1732; C1892; C1759; 85347; 86900; 86901; 93005; 93656; C1733; C1766; C1769

== ENCOUNTER → 2025-06-16 08:14 | Outpatient (REF) | payer MEDICARE, OTHER, SELFPAY | LOC: HWRCS 08:14 | PROVIDERS: ATTENDING PHYSICIAN Internal Medicine Cardiovascular Disease; FAMILY PHYSICIAN Family Medicine Sports Medicine | DX: I50.32 Chronic diastolic (congestive) heart failure (principal); I25.10 Atherosclerotic heart disease of native coronary artery without angina pectoris | CPT/HCPCS: 93306 ==

== ENCOUNTER → 2025-06-19 07:53 | Outpatient (REF) | payer MEDICARE, OTHER, SELFPAY | LOC: DHVS 07:53 | PROVIDERS: ATTENDING PHYSICIAN Surgery Vascular Surgery | DX: I73.9 Peripheral vascular disease, unspecified (principal) | CPT/HCPCS: 93922; 93925 ==